=== PATIENT | female | born 1990 | race Caucasian/White ===

== ENCOUNTER 2018-07-16 13:00 | Emergency (ER) | payer OTHER, MEDICAID, SELFPAY ==
[2018-07-16 13:00] VITALS: BP 141/93; PULSE 119; RESP 20; TEMP 37.5; O2SAT 100
--- NOTE | 2018-07-16 13:15 | ED_ITS ---
HPI - Abdominal Pain <Kika Andrea PA-C - Last Filed: 07/16/18 21:38> General Chief Complaint: Abdominal Pain Stated Complaint: Abdominal Pain Time Seen by Provider: 07/16/18 13:05 Source: patient Mode of arrival: ambulatory Limitations: no limitations History of Present Illness HPI narrative: This 28-year-old female comes in due to left pelvic area pain. She states that her LMP was 7/20, however she just had confirmed last week, Dr. Moran thinks she is somewhere between 6-10 weeks. She states that she had nausea this morning for the 1st time, and gradually worsening pelvic/ abdominal pressure, then pain on the left over the hour prior to arrival. She states that this feels similar to her prior hemorrhagic ovarian cysts in terms of pain quality. She has not taken any pain medication. She states at times pain feels like it radiates into the thigh. She denies fever. She has not had any vomiting today. She denies any vaginal spotting or discharge. Denies any hematuria or urinary symptoms. She had a normal bowel movement yesterday and was feeling normal. She states that she feels somewhat like she has an ?air bubble? in her chest, and felt somewhat winded with walking a little while ago, otherwise has not had any chest discomfort or dyspnea. She denies any pain or swelling in her extremities or other new complaints on systems review. Related Data Home Medications Medication Instructions Recorded Confirmed lactobacillus combination no.8 3 3,000 mmu cells PO DAILY 06/07/18 07/16/18 billion cell capsule Allergies Allergy/AdvReac Type Severity Reaction Status Date / Time No Known Drug Allergies Allergy Verified 07/16/18 13:26 Review of Systems <Kika Andrea PA-C - Last Filed: 07/16/18 21:38> Review of Systems All systems reviewed & are unremarkable except as noted in HPI and below PFSH <Kika Andrea PA-C - Last Filed: 07/16/18 21:38> Comment: Exam <Kika Andrea PA-C - Last Filed: 07/16/18 21:38> Initial Vital Signs Initial Vital Signs: Vital Signs Temperature 99.5 F 07/16/18 13:00 Pulse Rate 119 H 07/16/18 13:00 Respiratory Rate 20 07/16/18 13:00 Blood Pressure 141/93 H 07/16/18 13:00 Pulse Oximetry 100 07/16/18 13:00 GENERAL APPEARANCE: Patient resting comfortably, in no distress. HEENT: PERRL, EOMI, no scleral icterus NECK: Supple LUNGS: Clear to auscultation bilaterally. HEART: Rate and rhythm regular, normal S1 and S2, no S3 or S4. Heart rate in 70s on my auscultation, sinus arrythmia ABDOMEN: Soft, nondistended, bowel sounds present x 4 quadrants, no masses palpable, no hepatosplenomegaly. Tender over the left inferior lower quadrant/ pelvic border without guarding or rebound, no tenderness elsewhere including suprapubic tenderness or CVAT EXTREMITIES: No edema, no cyanosis, no calf tenderness DERMATOLOGIC: No jaundice or exanthem NEUROLOGIC: Alert and oriented with normal speech and coordination <Kike Velazquez DO - Last Filed: 07/17/18 07:01> Initial Vital Signs Initial Vital Signs: Vital Signs Temperature 99.5 F 07/16/18 13:00 Pulse Rate 119 H 07/16/18 13:00 Respiratory Rate 20 07/16/18 13:00 Blood Pressure 141/93 H 07/16/18 13:00 Pulse Oximetry 100 07/16/18 13:00 Course <Kika Andrea PA-C - Last Filed: 07/16/18 21:38> Additional Information: Patient reported pain significantly improved during her stay, just with ice pack. She was tolerating fluids and crackers prior to departure and reported feeling better. Agreed to return if any acutely worsening symptoms again. She is not having any dyspnea or chest discomfort prior to discharge. Orders Ordered: Discontinued Medications Acetaminophen (Tylenol) 650 mg PO NOW ONE Stop: 07/16/18 14:35 Last Admin: 07/16/18 14:39 Dose: 650 mg Vital Signs - 8 hr 07/16/18 14:02 07/16/18 14:30 07/16/18 15:27 Temperature 97.5 F L Pulse Rate 83 91 H 87 Respiratory Rate 18 14 16 Blood Pressure [Left Arm] 129/69 H 140/70 H 122/67 H Pulse Oximetry 99 100 100 <Kike Velazquez DO - Last Filed: 07/17/18 07:01> Orders Ordered: Discontinued Medications Acetaminophen (Tylenol) 650 mg PO NOW ONE Stop: 07/16/18 14:35 Last Admin: 07/16/18 14:39 Dose: 650 mg Vital Signs - 8 hr 07/16/18 14:02 07/16/18 14:30 07/16/18 15:27 Temperature 97.5 F L Pulse Rate 83 91 H 87 Respiratory Rate 18 14 16 Blood Pressure [Left Arm] 129/69 H 140/70 H 122/67 H Pulse Oximetry 99 100 100 MDM - Abdominal Pain <Kika Andrea PA-C - Last Filed: 07/16/18 21:38> Lab Data Attestation: I reviewed the patient's lab results. Result diagrams: 07/16/18 13:15 07/16/18 13:15 Lab Results 07/16/18 07/16/18 Range/Units 13:15 13:15 WBC 12.2 H (4.5-11.0) X10^3/uL RBC 4.64 (4.0-5.2) X10^6/uL Hgb 13.8 (12.0-16.0) g/dL Hct 39.9 (36-46) % MCV 86.0 (80-100) fL MCH 29.8 (26-34) PG MCHC 34.7 (30-36) % RDW 13.3 (11.6-14.8) % Plt Count 302 (150-400) X10^3/uL Neut % (Auto) 71.2 (50-75) % Lymph % (Auto) 22.1 L (25-40) % [place] % (Auto) 4.9 (3-14) % Eos % (Auto) 0.8 L (2-4) % Baso % (Auto) 1.0 (0-2) % Neut # (Auto) 8700 H (3479-5236) /uL Sodium 142 (137-145) mmol/L Potassium 3.4 (3.4-5.1) mmol/L Chloride 105 (98-107) mmol/L Carbon Dioxide 26 (22-32) mmol/L BUN 14 (7-17) mg/dL Creatinine 0.60 (0.52-1.04) mg/dL Estimated GFR > 60.0 (>60) mL/min BUN/Creatinine Ratio 23.3 H (6-22) Glucose 104 H (70-100) mg/dL Calcium 9.5 (8.4-10.2) mg/dL Total Bilirubin 0.6 (0.2-1.3) mg/dL AST 23 (14-36) IU/L ALT 25 (9-52) IU/L Alkaline Phosphatase 51 (38-126) U/L Total Protein 7.8 (6.3-8.2) g/dL Albumin 4.7 (3.5-5.0) g/dL Globulin 3.1 (1.7-4.1) g/dL Albumin/Globulin Ratio 1.5 (1.0-2.8) HCG, Quant 23783 mIU/mL Imaging Data pelvis: Radiologist's impression: View Report History [address] [address] Ultrasound Report Signed Patient: Ambreen Montague MR#: [id number] : 1990 Acct:[id number] Age/Sex: 28 / F Date of Service: 07/16/18 Loc: ED Accession Number: [id number] Procedure: US OB <= 14 weeks fetus Ordering Provider: Kika Andrea P.A-C PROCEDURE: US OB <= 14 WEEKS FETUS INDICATIONS: L. pelvic pain, pG OUTSIDE/PRIOR DATING DATA: Last menstrual period (LMP): 06/10/18. LMP-based estimated date of delivery (ERENDIRA): 03/17/19. First dating scan (date and location): This study. Estimated date of delivery (ERENDIRA) from first dating scan: 03/13/19+ or -7 days, based on mean sac diameter and the estimated gestational age centered on 5 weeks 5 days. TECHNIQUE: Real-time scanning was performed of the fetus and maternal pelvic organs, with image documentation. Endovaginal scanning was also performed to better visualize the fetus and maternal ovaries. COMPARISON: None. FINDINGS: Embryo: An embryo is not seen Me but what appears to be a gestational sac by mean sac diameter of 9 mm is present with a gestational age estimate from [place] of 5 weeks 5 days, plus or -7 days asurement variability in dating: +/- 4 weeks by LMP, +/- 7 days by mean sac diameter ( use before 6 weeks gestation if crown-rump length not able to be measured), +/- 5 days by crown-rump length (up to 8 weeks 6 days gestation), +/- 7 days by crown-rump length (up to 13 weeks 6 days gestation). Maternal organs: Ovaries normal considering presumed gestational status. Limited images through the kidneys demonstrate no hydronephrosis. IMPRESSION: Presumed intrauterine gestation but embryo has not yet been visualized. Assuming mean sac diameter of 9 mm represents a crit evidence of intrauterine gestation the current gestational age would E5 weeks 5 days and the delivery date would be projected to be centered on 03/13/19, plus or -7 days. No sonographic evidence of ectopic is found. Correlation with quantitative beta hCG would assist in establishing likelihood of viable gestation. Followup anatomic survey at approximately 21 weeks gestation is recommended. Dictated by: Vladimir Pizarro M.D. on 07/16/2018 at 15:15 Approved by: Vladimir Pizarro M.D. on 07/16/2018 at 15:18 <Kike Velazquez DO - Last Filed: 07/17/18 07:01> Lab Data Lab Results 07/16/18 07/16/18 Range/Units 13:15 13:15 WBC 12.2 H (4.5-11.0) X10^3/uL RBC 4.64 (4.0-5.2) X10^6/uL Hgb 13.8 (12.0-16.0) g/dL Hct 39.9 (36-46) % MCV 86.0 (80-100) fL MCH 29.8 (26-34) PG MCHC 34.7 (30-36) % RDW 13.3 (11.6-14.8) % Plt Count 302 (150-400) X10^3/uL Neut % (Auto) 71.2 (50-75) % Lymph % (Auto) 22.1 L (25-40) % [place] % (Auto) 4.9 (3-14) % Eos % (Auto) 0.8 L (2-4) % Baso % (Auto) 1.0 (0-2) % Neut # (Auto) 8700 H (7319-8861) /uL Sodium 142 (137-145) mmol/L Potassium 3.4 (3.4-5.1) mmol/L Chloride 105 (98-107) mmol/L Carbon Dioxide 26 (22-32) mmol/L BUN 14 (7-17) mg/dL Creatinine 0.60 (0.52-1.04) mg/dL Estimated GFR > 60.0 (>60) mL/min BUN/Creatinine Ratio 23.3 H (6-22) Glucose 104 H (70-100) mg/dL Calcium 9.5 (8.4-10.2) mg/dL Total Bilirubin 0.6 (0.2-1.3) mg/dL AST 23 (14-36) IU/L ALT 25 (9-52) IU/L Alkaline Phosphatase 51 (38-126) U/L Total Protein 7.8 (6.3-8.2) g/dL Albumin 4.7 (3.5-5.0) g/dL Globulin 3.1 (1.7-4.1) g/dL Albumin/Globulin Ratio 1.5 (1.0-2.8) HCG, Quant 81692 mIU/mL Discharge Plan Departure Patient Disposition: Home Clinical Impression: Pelvic pain affecting in first trimester, antepartum Discharge Date/Time: 07/16/18 16:17 Interventions: ED Discharge Assessment Last Done: 07/16/18 15:48 Instructions: DI for Abdominal Pain -- Early Activity Restrictions/Additional Instructions: Since you are feeling better, you can monitor at home. Take Tylenol and use an ice or heat pack as needed for pain. Your ultrasound today showed a gestational sac in your uterus. There is no embryo visible yet, however at a little more than 5 weeks along, this would be typical, and the ultrasound dating correlates with your last period. Your blood test is normal for this stage of . The electrical service technician noted that you did have a cyst on your right ovary that is rupturing. Please continue to drink fluids and eat small amounts of bland food every hour or 2 to help with nausea. You should return if you have any acutely worsening symptoms, such as worsening pain again, or new symptoms such as fever or profuse vomiting Prescriptions: No Action lactobacillus combination no.8 [Adult Probiotic] 3 billion cell capsule 3,000 mmu cells PO DAILY RF: 0 Referrals: Roberto Moran MD [Primary Care Provider] - <Kike Velazquez DO - Last Filed: 07/17/18 07:01> Cosign ED Attending Marimarature Attestation: I was available for consultation during this patient's emergency department encounter
[2018-07-16 13:29] LABS: Add Manual Diff / Slide Review NO; Eosinophils Percent Auto 0.8 % (2-4); Hematocrit 39.9 % (36-46); Hemoglobin 13.8 g/dL (12.0-16.0); Lymphocytes Percent Auto 22.1 % (25-40); Mean Corpuscular HGB Conc 34.7 % (30-36); Mean Corpuscular Hemoglobin 29.8 PG (26-34); Monocytes Percent Auto 4.9 % (3-14); Neutrophils Absolute Auto 8700 /uL (3000-5900); Neutrophils Percent Auto 71.2 % (50-75); Platelet Count 302 X10^3/uL (150-400); Red Blood Cell Count 4.64 X10^6/uL (4.0-5.2); Red Cell Distribution Width 13.3 % (11.6-14.8); White Blood Cell Count 12.2 X10^3/uL (4.5-11.0)
--- NOTE | 2018-07-16 13:29 | DI.US.S_ITS ---
PROCEDURE: US OB <= 14 WEEKS FETUS INDICATIONS: L. pelvic pain, pG OUTSIDE/PRIOR DATING DATA: Last menstrual period (LMP): 06/10/18. LMP-based estimated date of delivery (ERENDIRA): 03/17/19. First dating scan (date and location): This study. Estimated date of delivery (ERENDIRA) from first dating scan: 03/13/19+ or -7 days, based on mean sac diameter and the estimated gestational age centered on 5 weeks 5 days. TECHNIQUE: Real-time scanning was performed of the fetus and maternal pelvic organs, with image documentation. Endovaginal scanning was also performed to better visualize the fetus and maternal ovaries. COMPARISON: None. FINDINGS: Embryo: An embryo is not seen Me but what appears to be a gestational sac by mean sac diameter of 9 mm is present with a gestational age estimate from [place] of 5 weeks 5 days, plus or -7 days asurement variability in dating: +/- 4 weeks by LMP, +/- 7 days by mean sac diameter (use before 6 weeks gestation if crown-rump length not able to be measured), +/- 5 days by crown-rump length (up to 8 weeks 6 days gestation), +/- 7 days by crown-rump length (up to 13 weeks 6 days gestation). Maternal organs: Ovaries normal considering presumed gestational status. Limited images through the kidneys demonstrate no hydronephrosis. IMPRESSION: Presumed intrauterine gestation but embryo has not yet been visualized. Assuming mean sac diameter of 9 mm represents a crit evidence of intrauterine gestation the current gestational age would E5 weeks 5 days and the delivery date would be projected to be centered on 03/13/19, plus or -7 days. No sonographic evidence of ectopic is found. Correlation with quantitative beta hCG would assist in establishing likelihood of viable gestation. Followup anatomic survey at approximately 21 weeks gestation is recommended. Dictated by: Vladimir Pizarro M.D. on 07/16/2018 at 15:15 Approved by: Vladimir Pizarro M.D. on 07/16/2018 at 15:18
[2018-07-16 13:30] VITALS: BP 128/77; PULSE 99; RESP 18; O2SAT 99
[2018-07-16 13:42] LABS: Alanine Aminotransferase 25 IU/L (9-52); Albumin 4.7 g/dL (3.5-5.0); Albumin Globulin Ratio 1.5 (1.0-2.8); Alkaline Phosphatase 51 U/L (38-126); Aspartate Aminotransferase 23 IU/L (14-36); BUN Creatinine Ratio 23.3 (6-22); Bilirubin Total 0.6 mg/dL (0.2-1.3); Blood Urea Nitrogen 14 mg/dL (7-17); Calcium 9.5 mg/dL (8.4-10.2); Carbon Dioxide 26 mmol/L (22-32); Chloride 105 mmol/L (98-107); Estimated Glomerular Filt Rate > 60.0 mL/min (>60); Globulin 3.1 g/dL (1.7-4.1); Glucose 104 mg/dL (70-100); HEMOLYSIS < 15 (0-50); Potassium 3.4 mmol/L (3.4-5.1); Sodium 142 mmol/L (137-145); Total Protein 7.8 g/dL (6.3-8.2)
[2018-07-16 14:00] LABS: HCG Quantitative /Beta subunit 10312 mIU/mL
[2018-07-16 14:02] VITALS: BP 129/69; PULSE 83; RESP 18; O2SAT 99
[2018-07-16 14:30] VITALS: BP 140/70; PULSE 91; RESP 14; O2SAT 100
[2018-07-16] MEDS: ACETAMINOPHEN 325 MG TABLET 650 MG PO (14:39)
[2018-07-16 15:27] VITALS: BP 122/67; PULSE 87; RESP 16; TEMP 36.4; O2SAT 100
== END 2018-07-16 16:17 | disposition home or self-care (01) ==
PROVIDERS: Emergency Provider Internal Medicine; Family Provider Family Medicine; PCP Family Medicine
DX: O26.891 Other specified pregnancy related conditions, first trimester (principal); R10.9 Unspecified abdominal pain; Z3A.14 14 weeks gestation of pregnancy
CPT/HCPCS: 36591; 76801; 80053; 84702; 85025; 99283; 99284

== ENCOUNTER → 2018-07-26 12:37 | Outpatient (CLI) | payer OTHER, MEDICAID, SELFPAY ==
--- NOTE | 2018-07-26 | DI.US.S_ITS ---
PROCEDURE: US OB <= 14 WEEKS FETUS INDICATIONS: INITIAL SIZING AND DATING OUTSIDE/PRIOR DATING DATA: Last menstrual period (LMP): 06/10/2018. LMP-based estimated date of delivery (ERENDIRA): 03/17/2019. First dating scan (date and location): 07/26/2018 at . Estimated date of delivery (ERENDIRA) from first dating scan: 03/14/2019 (based on CRL). TECHNIQUE: Real-time scanning was performed of the fetus and maternal pelvic organs, with image documentation. COMPARISON: [facility], , OB <= 14 WEEKS FETUS, 07/16/2018, 14:14. FINDINGS: Embryo: There is an intrauterine gestational sac and a pole with cardiac activity. heart rate is at 122 bpm. Estimated gestational age is 7 weeks 0 day. There is a normal-appearing yolk sac. Measurement variability in dating: +/- 4 weeks by LMP, +/- 7 days by mean sac diameter (use before 6 weeks gestation if crown-rump length not able to be measured), +/- 5 days by crown-rump length (up to 8 weeks 6 days gestation), +/- 7 days by crown-rump length (up to 13 weeks 6 days gestation). Maternal organs: Ovaries are grossly normal. Note is made of a 2.2 cm corpus luteal cyst in the right ovary. Limited images through the kidneys demonstrate no hydronephrosis. IMPRESSION: 1. A single living intrauterine gestation with the estimated gestational age of 7 weeks 0 day base on the current ultrasound. Ultrasound EDC 03/14/2019. 2. A 2.2 cm corpus luteal cyst in the right ovary. Dictated by: Ousmane Moe M.D. on 07/26/2018 at 16:04 Approved by: Ousmane Moe M.D. on 07/26/2018 at 16:13
== END ==
PROVIDERS: Family Provider Family Medicine; PCP Family Medicine; Visit Provider Family Medicine
DX: O34.81 Maternal care for other abnormalities of pelvic organs, first trimester (principal); N83.11 Corpus luteum cyst of right ovary; Z3A.01 Less than 8 weeks gestation of pregnancy
CPT/HCPCS: 76801; 76817

== ENCOUNTER → 2018-09-25 08:35 | Outpatient (CLI) | payer OTHER, MEDICAID, SELFPAY | PROVIDERS: Family Provider Family Medicine; PCP Family Medicine | DX: Z23 Encounter for immunization (principal) | CPT/HCPCS: 90471; 90686 ==

== ENCOUNTER → 2018-09-29 12:30 | Outpatient (CLI) | payer OTHER, MEDICAID, SELFPAY ==
--- NOTE | 2018-09-29 | DI.US.S_ITS ---
PROCEDURE: US OB LIMITED INDICATIONS: VAGINAL BLEEDING/SECOND TRIMESTER OUTSIDE/PRIOR DATING DATA: Last menstrual period (LMP): 06/10/2018. LMP-based estimated date of delivery (ERENDIRA): 03/17/2019. First dating scan (date and location): 07/26/2018 at . Estimated date of delivery (ERENDIRA) from first dating scan: 03/14/2019. TECHNIQUE: Real-time scanning was performed of the fetus, with image documentation and biometric measurements. Endovaginal scanning: No COMPARISON: [facility], OB <= 14 WEEKS FETUS, 07/26/2018, 13:07. [facility], [facility], 05/17/2014, 8:35. FINDINGS: General: A single living intrauterine gestation is present. Presentation: Transverse. Placenta: Placental position is posterior, with marginal previa with the inferior aspect of the placenta extending to the internal cervical os. Amniotic fluid index: 9.1 cm, normal range is 5-24 cm. heart rate: 140 beats per minute. Maternal cervical canal: 3.6 cm long. Normal lower limit is 2.5 cm. Other: Not applicable. IMPRESSION: 1. Single living IUP redemonstrated and marginal placenta previa present. Followup recommended. Dictated by: Jose KENT Interpreted: Vladimir Pizarro MD on 09/29/2018 at 14:32 Approved by: Vladimir Pizarro M.D. on 09/30/2018 at 10:53
== END ==
PROVIDERS: Family Provider Family Medicine; PCP Family Medicine; Visit Provider Family Medicine
DX: O46.92 Antepartum hemorrhage, unspecified, second trimester (principal); Z3A.15 15 weeks gestation of pregnancy
CPT/HCPCS: 76815

== ENCOUNTER → 2018-11-01 08:44 | Outpatient (CLI) | payer OTHER, MEDICAID, SELFPAY ==
--- NOTE | 2018-11-01 | DI.US.S_ITS ---
PROCEDURE: OB >= 14 WEEKS FETUS INDICATIONS: ANATOMIC SURVEY OUTSIDE/PRIOR DATING DATA: Last menstrual period (LMP): 06/10/18. LMP-based estimated date of delivery (ERENDIRA): 03/17/19. First dating scan (date and location): 07/16/18. Estimated date of delivery (ERENDIRA) from first dating scan: 03/14/19. TECHNIQUE: Real-time scanning was performed of the fetus, with image documentation and biometric measurements. Endovaginal scanning: No COMPARISON: [facility], OB LIMITED, 09/29/2018, 12:54. FINDINGS: General: A single living intrauterine gestation is present. Presentation: The vertex Placenta: Placental position is posterior, with complete placenta previa at this time. Amniotic fluid index: 1.2 cm, normal range is 5-24 cm. heart rate: 160 beats per minute. Maternal cervical canal: 4.0 cm long. biometrics: Biparietal diameter: 20 weeks 6 days Head circumference: 20 weeks 5 days Abdominal circumference: 20 weeks 4 days Femur length: 20 weeks 4 days Estimated gestational age from initial scan: 21 weeks Composite gestational age from present scan: 20 weeks 6 days Estimated weight and percentile: 361 g; 23rd percentile Measurement variability for biometric dating: +/- 7 days from 14 weeks to 15 weeks 6 days gestation, +/- 10 days from 16 weeks to 21 weeks 6 days gestation, +/- 2 weeks from 22 weeks to 27 weeks 6 days gestation, +/- 3 weeks for 28 weeks gestation or later. weight reference: 4500 g or EFW >90/95% is considered macrosomia or large for gestational age. EFW <10% is small for gestational age. EFW 5% or less is considered intra-uterine growth restriction. Anatomic survey: Neuro: Ventricles are non-dilated at less than 10 mm. Cisterna magna is normal at 3-11 mm. Cerebellum is normal in size and morphology. Nuchal skin fold: Normal at less than 6 mm between 14-21 weeks gestational age. Face: Nose and lips, facial profile are normal. Spine: No evidence for spina bifida. Heart: 4-chambered heart is present, with normal ventricular outflow tracts. Diaphragm: Diaphragm is intact. Stomach: Left-sided stomach is present. Kidneys: No hydronephrosis. Normal is less than 5 mm in 2nd trimester, less than 7 mm in 3rd trimester. Cord: 3-vessel cord has orthotopic insertion. Bladder: Normal in size. Extremities: All 4 extremities identified. IMPRESSION: 1. Single living IUP we demonstrated and interval growth is normal. 2. Normal anatomic survey. 3. Complete placenta previa. Followup recommended. Dictated by: Jose LOPEZ Interpreted: Jessica Perdue MD on 11/01/2018 at 11:17 Approved by: Jessica Perdue M.D. on 11/01/2018 at 14:46
== END ==
PROVIDERS: PCP Family Medicine; Visit Provider Family Medicine
DX: Z36.89 Encounter for other specified antenatal screening (principal); Z3A.20 20 weeks gestation of pregnancy
CPT/HCPCS: 76811

== ENCOUNTER → 2018-12-20 09:38 | Outpatient (CLI) | payer OTHER, MEDICAID, SELFPAY ==
--- NOTE | 2018-12-20 | DI.US.S_ITS ---
PROCEDURE: US OB FOLLOW UP INDICATIONS: PLACENTA PREVIA OUTSIDE/PRIOR DATING DATA: Last menstrual period (LMP): 06/10/18. LMP-based estimated date of delivery (ERENDIRA): 03/17/19. First dating scan (date and location): 07/16/18. Estimated date of delivery (ERENDIRA) from first dating scan: 03/14/19. TECHNIQUE: Real-time scanning was performed of the fetus, with image documentation and biometric measurements. Endovaginal scanning: No COMPARISON: [facility], OB >= 14 WEEKS FETUS, 11/01/2018, 9:10. FINDINGS: General: A single living intrauterine gestation is present. Presentation: Vertex. Placenta: Placental position is posterior, with marginal placenta previa with the inferior aspect of the placenta 0.7 cm above the internal cervical os Amniotic fluid index: 13.1 cm, normal range is 5-24 cm. heart rate: 144 beats per minute. Maternal cervical canal: 5.2 cm long. Normal lower limit is 2.5 cm. Other: Not applicable. IMPRESSION: 1. Single living IUP redemonstrated and marginal placenta previa is now noted. Continued sonographic surveillance recommended. Dictated by: Jose LOPEZ Interpreted: Vladimir Pizarro MD on 12/20/2018 at 13:06 Approved by: Vladimir Pizarro M.D. on 12/21/2018 at 8:11
== END ==
PROVIDERS: PCP Family Medicine; Visit Provider Family Medicine
DX: O44.22 Partial placenta previa NOS or without hemorrhage, second trimester (principal); Z3A.27 27 weeks gestation of pregnancy
CPT/HCPCS: 76816; 76830

== ENCOUNTER → 2019-01-16 10:10 | Outpatient (CLI) | payer OTHER, MEDICAID, SELFPAY ==
--- NOTE | 2019-01-16 | DI.US.S_ITS ---
PROCEDURE: US OB FOLLOW UP INDICATIONS: PLACENTA PREVIA OUTSIDE/PRIOR DATING DATA: Last menstrual period (LMP): 06/10/18. LMP-based estimated date of delivery (ERENDIRA): 03/17/19. First dating scan (date and location): 07/16/18. Estimated date of delivery (ERENDIRA) from first dating scan: 03/14/19. TECHNIQUE: Real-time scanning was performed of the fetus, with image documentation. Endovaginal scanning: Performed for more specific evaluation of marginal previa COMPARISON: [facility], OB FOLLOW UP, 12/20/2018, 10:09. FINDINGS: A single live intrauterine gestation is present. Presentation: Vertex. Placenta: Placental position is posterior, without previa. The inferior placental edge is seen 2.4 cm from the internal cervical os. Amniotic fluid index: 8.6 cm, normal range is 5-24 cm. heart rate: 137 beats per minute. Maternal cervical canal: 5.8 cm long. Normal lower limit is 2.5 cm. Estimated gestational age from initial scan: 31 weeks 6 days. IMPRESSION: There is no placenta previa seen at this time. The inferior placental edge is seen 2.4 cm from the internal cervical os. The ANURADHA is 8.6, which is approximately the 5th percentile for gestational age. Please monitor for oligohydramnios. Dictated by: Darell Elder M.D. on 01/16/2019 at 14:23 Approved by: Darell Elder M.D. on 01/16/2019 at 14:30
== END ==
PROVIDERS: PCP Family Medicine; Visit Provider Family Medicine
DX: O44.03 Complete placenta previa NOS or without hemorrhage, third trimester (principal); Z3A.31 31 weeks gestation of pregnancy
CPT/HCPCS: 76815; 76817

== ENCOUNTER 2019-01-29 14:28 | Observation (INO) | payer OTHER, MEDICAID, SELFPAY ==
[2019-01-29] MEDS: NIFEdipine 10 MG CAPSULE PO ×4 (15:13→16:21)
[2019-01-29] MEDS: LACTATED RINGERS 1,000 ML 1000 ML IV (15:15)
[2019-01-29 16:05] LABS: Bacteria Urine None Seen; RBC Urine None Seen (0-5/HPF)
[2019-01-29 16:07] LABS: Appearance Urine UA CLEAR; Bilirubin Urine UA NEGATIVE (NEGATIVE); Color Urine UA YELLOW; Glucose Urine UA NEGATIVE (Negative); Ketones Urine UA NEGATIVE (NEGATIVE); Leukocyte Esterase Urine UA NEGATIVE (NEGATIVE); Nitrite Urine UA NEGATIVE (Negative); Occult Blood Urine UA NEGATIVE (Negative); Protein Urine UA NEGATIVE (Negative); Specific Gravity Urine UA <=1.005 (1.000-1.035); Urobilinogen Urine UA 0.2 E.U./dL (0.2); pH Urine UA 6.5 (4.5-8.0)
[2019-01-29 16:17] LABS: Culture Indicated Urine Cult Not Indicated; Squamous Epithelial Cell Urine 1-5 /HPF; WBC Urine 0-1/HPF (0-5/HPF)
--- NOTE | 2019-01-29 16:31 | DI.US.S_ITS ---
PROCEDURE: US OB LIMITED INDICATIONS: CONTRACTIONS OUTSIDE/PRIOR DATING DATA: Last menstrual period (LMP): 06/10/18. LMP-based estimated date of delivery (ERENDIRA): 03/17/19 First dating scan (date and location): 07/16/18, [facility] Estimated date of delivery (ERENDIRA) from first dating scan: 03/14/19 TECHNIQUE: Real-time scanning was performed of the fetus, with image documentation and biometric measurements. Endovaginal scanning: Not performed COMPARISON: [facility], , OB LIMITED, 09/29/2018, 12:54. FINDINGS: General: A single living intrauterine gestation is present. Presentation: Vertex Placenta: Posterior without previa Amniotic fluid index: 5.1 cm, normal range is 5-24 cm. heart rate: 175 beats per minute. Maternal cervical canal: Not seen a late stage of os: % of canal length, shape (U or V), width or any U-shaped funneling.>> biometrics: Biparietal diameter: 8.37 cm, 33 weeks 5 days Head circumference: 30.14 cm, 33 weeks 3 days Abdominal circumference: 30.06 cm, 34 weeks zero days Femur length: 6.16 cm, 32 weeks zero days Estimated gestational age from initial scan: not applicable. Composite gestational age from present scan: 33 weeks 2 days Estimated weight and percentile: 2176 g plus or -322 g, 32nd percentile Measurement variability for biometric dating: +/- 7 days from 14 weeks to 15 weeks 6 days gestation, +/- 10 days from 16 weeks to 21 weeks 6 days gestation, +/- 2 weeks from 22 weeks to 27 weeks 6 days gestation, +/- 3 weeks for 28 weeks gestation or later. weight reference: 4500 g or EFW >90/95% is considered macrosomia or large for gestational age. EFW <10% is small for gestational age. EFW 5% or less is considered intra-uterine growth restriction. There is normal interval growth. Other: Not applicable. IMPRESSION: 1. Living third trimester intrauterine . Normal interval growth, within 3 days of the previous ultrasound. 2. Borderline oligohydramnios Dictated by: Jesus Alberto Hurt M.D. on 01/29/2019 at 17:25 Approved by: Jesus Alberto Hurt M.D. on 01/29/2019 at 17:31
[2019-01-29] MEDS: TERBUTALINE 1 MG/ML VIAL 0.25 MG SUBCUT (16:46)
[2019-01-29 17:54] LABS: Add Manual Diff / Slide Review NO; Basophils Absolute Auto 100 /uL (0-100); Basophils Percent Auto 0.6 % (0-2); Eosinophils Absolute Auto 100 /uL (0-450); Hematocrit 38.9 % (36-46); Lymphocytes Absolute Auto 2600 /uL (1100-4500); Lymphocytes Percent Auto 20.9 % (25-40); Mean Corpuscular HGB Conc 33.4 % (30-36); Mean Corpuscular Hemoglobin 29.5 PG (26-34); Mean Corpuscular Volume 88.2 fL (80-100); Monocytes Absolute Auto 700 /uL (0-900); Monocytes Percent Auto 5.9 % (3-14); Neutrophils Absolute Auto 8800 /uL (1500-7000); Neutrophils Percent Auto 71.6 % (50-75); Platelet Count 182 X10^3/uL (150-400); Red Blood Cell Count 4.41 X10^6/uL (4.0-5.2); Red Cell Distribution Width 13.6 % (11.6-14.8); White Blood Cell Count 12.3 X10^3/uL (4.5-11.0)
[2019-01-29] MEDS: MAGNESIUM SULFATE 4 GM/100 ML PIGGYBACK IV (17:58)
--- NOTE | 2019-01-29 18:03 | PM.OBHP.1 ---
OB HPI History of Present Condition Chief complaint: Observation Narrative: Ambreen Montague is a 28 year old female at 33 and 5 7 weeks estimated gestational age presents to Labor and delivery with a 3 hr history of progressively worsening contractions. She has not had any change in discharge. She has not had any bleeding. She has not had sex recently. 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 She has not had headaches or swelling or reflux or visual changes and baby has been active. She has had 4 doses of nifedipine 10 mg as well as terbutaline of lean 0.25 mg subcu and had improvement in contractions and they have resumed. They are quite painful. Her past OB history is remarkable for premature onset of uterine contractions at 35 weeks and normal spontaneous vaginal delivery at 37 and half weeks of a viable female infant weighing 8 lb 6 oz at [facility]. There were no complications. She has had early care and EDC based on LMP in 7 week ultrasound. This has been complicated by placenta previa which has resolved on ultrasound 2 weeks ago. Fluid was noted to be low normal on this ultrasound with an ANURADHA of 8 and a repeat ultrasound was scheduled for tomorrow. Serology syphilis, HIV, hepatitis-B, hepatitis-C are all negative A positive, rubella immune Immune to chickenpox. HSV 1 positive but HSV 2- GBS rapid strep is pending Past medical history: 1. Irritable bowel syndrome 2. 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 [employer] FHx: no congenital birthdefects Evaluation Evaluation Laboratory results: Laboratory Tests 01/29/19 01/29/19 16:00 17:40 WBC 12.3 H RBC 4.41 Hgb 13.0 Hct 38.9 MCV 88.2 MCH 29.5 MCHC 33.4 RDW 13.6 Plt Count 182 Neut % (Auto) 71.6 Lymph % (Auto) 20.9 L [place] % (Auto) 5.9 Eos % (Auto) 1.0 L Baso % (Auto) 0.6 Neut # (Auto) 8800 H Lymph # (Auto) 2600 [place] # (Auto) 700 Eos # (Auto) 100 Baso # (Auto) 100 Urine Color Yellow Urine Appearance Clear Urine pH 6.5 Ur Specific [place] <=1.005 Urine Protein Negative Urine Glucose (UA) Negative Urine Ketones Negative Urine Occult Blood Negative Urine Nitrate Negative Urine Bilirubin Negative Urine Urobilinogen 0.2 Ur Leukocyte Esterase Negative Urine RBC None seen Urine WBC 0-1/hpf Ur Squamous Epith Cells 1-5 /hpf Urine Bacteria None seen Ur Culture Indicated? Cult not indicated PFSH Surgical History History of tonsillectomy (Resolved) S/P tonsillectomy (Resolved) Family History Grandfather No problems noted. Grandmother Lung cancer Grandmother No problems noted. Brother No problems noted. Social History Smoking Status: Former smoker Family History Grandfather No problems noted. Grandmother Lung cancer Grandmother No problems noted. Brother No problems noted. Social History Smoking Status: Former smoker Meds Home Medications Medication Instructions Recorded Confirmed Type lactobacillus combination no.8 3 3,000 mmu cells PO DAILY 06/07/18 07/16/18 History billion cell capsule Allergies Allergy/AdvReac Type Severity Reaction Status Date / Time No Known Drug Allergies Allergy Verified 07/16/18 13:26 Review of Systems Review of Systems Negative for any change in fluid. Negative for any headaches. Negative for any swelling. Negative for any visual changes. Baby has been active No abdominal pain other than contractions No urinary symptoms No fevers, chills, rashes All systems reviewed & are unremarkable except as noted in HPI and below Exam Narrative Exam Narrative: Patient is alert and oriented x3 and vital signs are stable HEENT: Unremarkable Neck is supple without adenopathy Chest: Clear to auscultation without wheezes rhonchi or crackles Cor: Regular rate and rhythm without any murmur Abdomen: Positive bowel sounds, soft, gravid, contractions palpate firm, vertex presentation estimated weight 4.5 lb Uterine contractions are for firm Extremities: No edema, DTRs are intact Skin no rashes Cervical check shows that head is low -1 with cervix posterior to mid position very soft 50-60% effaced and finger tip dilated heart tones baseline in the 140s to 150s with accelerations with moderate variability and no decelerations Uterine contractions firm to palpation every 2-4 minutes Objective Labs Result Diagrams: 01/29/19 17:40 Labs: Laboratory Results - last 24 hr 01/29/19 01/29/19 16:00 17:40 WBC 12.3 H RBC 4.41 Hgb 13.0 Hct 38.9 MCV 88.2 MCH 29.5 MCHC 33.4 RDW 13.6 Plt Count 182 Neut % (Auto) 71.6 Lymph % (Auto) 20.9 L [place] % (Auto) 5.9 Eos % (Auto) 1.0 L Baso % (Auto) 0.6 Neut # (Auto) 8800 H Lymph # (Auto) 2600 [place] # (Auto) 700 Eos # (Auto) 100 Baso # (Auto) 100 Urine Color Yellow Urine Appearance Clear Urine pH 6.5 Ur Specific [place] <=1.005 Urine Protein Negative Urine Glucose (UA) Negative Urine Ketones Negative Urine Occult Blood Negative Urine Nitrate Negative Urine Bilirubin Negative Urine Urobilinogen 0.2 Ur Leukocyte Esterase Negative Urine RBC None seen Urine WBC 0-1/hpf Ur Squamous Epith Cells 1-5 /hpf Urine Bacteria None seen Ur Culture Indicated? Cult not indicated
--- NOTE | 2019-01-29 18:08 | P.HPOB_ITS ---
OB HPI History of Present Condition Chief complaint: Observation Narrative: Ambreen Montague is a 28 year old female at 33 and 5 7 weeks estimated gestational age presents to Labor and delivery with a 3 hr history of progressively worsening contractions. She has not had any change in discharge. She has not had any bleeding. She has not had sex recently. 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 She has not had headaches or swelling or reflux or visual changes and baby has been active. She has had 4 doses of nifedipine 10 mg as well as terbutaline of lean 0.25 mg subcu and had improvement in contractions and they have resumed. They are quite painful. Her past OB history is remarkable for premature onset of uterine contractions at 35 weeks and normal spontaneous vaginal delivery at 37 and half weeks of a viable female infant weighing 8 lb 6 oz at [facility]. There wer e no complications. She has had early care and EDC based on LMP in 7 week ultrasound. This has been complicated by placenta previa which has resolved on ultrasound 2 weeks ago. Fluid was noted to be low normal on this ultrasound with an ANURADHA of 8 and a repeat ultrasound was scheduled for tomorrow. Serology syphilis, HIV, hepatitis-B, hepatitis-C are all negative A positive, rubella immune Immune to chickenpox. HSV 1 positive but HSV 2- GBS rapid strep is pending Past medical history: 1. Irritable bowel syndrome 2. 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 [employer] FHx: no congenital birthdefects Evaluation Evaluation Laboratory results: Laboratory Tests 01/29/19 01/29/19 16:00 17:40 WBC 12.3 H RBC 4.41 Hgb 13.0 Hct 38.9 MCV 88.2 MCH 29.5 MCHC 33.4 RDW 13.6 Plt Count 182 Neut % (Auto) 71.6 Lymph % (Auto) 20.9 L [place] % (Auto) 5.9 Eos % (Auto) 1.0 L Baso % (Auto) 0.6 Neut # (Auto) 8800 H Lymph # (Auto) 2600 [place] # (Auto) 700 Eos # (Auto) 100 Baso # (Auto) 100 Urine Color Yellow Urine Appearance Clear Urine pH 6.5 Ur Specific [place] <=1.005 Urine Protein Negative Urine Glucose (UA) Negative Urine Ketones Negative Urine Occult Blood Negative Urine Nitrate Negative Urine Bilirubin Negative Urine Urobilinogen 0.2 Ur Leukocyte Esterase Negative Urine RBC None seen Urine WBC 0-1/hpf Ur Squamous Epith Cells 1-5 /hpf Urine Bacteria None seen Ur Culture Indicated? Cult not indicated PFSH Surgical History History of tonsillectomy (Resolved) S/P tonsillectomy (Resolved) Family History Grandfather No problems noted. Grandmother Lung cancer Grandmother No problems noted. Brother No problems noted. Social History Smoking Status: Former smoker Family History Grandfather No problems noted. Grandmother Lung cancer Grandmother No problems noted. Brother No problems noted. Social History Smoking Status: Former smoker Meds Home Medications Medication Instructions Recorded Confirmed Type lactobacillus combination no.8 3 3,000 mmu cells PO DAILY 06/07/18 07/16/18 History billion cell capsule Allergies Allergy/AdvReac Type Severity Reaction Status Date / Time No Known Drug Allergies Allergy Verified 07/16/18 13:26 Review of Systems Review of Systems Negative for any change in fluid. Negative for any headaches. Negative for any swelling. Negative for any visual changes. Baby has been active No abdominal pain other than contractions No urinary symptoms No fevers, chills, rashes All systems reviewed & are unremarkable except as noted in HPI and below Exam Narrative Exam Narrative: Patient is alert and oriented x3 and vital signs are stable HEENT: Unremarkable Neck is supple without adenopathy Chest: Clear to auscultation without wheezes rhonchi or crackles Cor: Regular rate and rhythm without any murmur Abdomen: Positive bowel sounds, soft, gravid, contractions palpate firm, vertex presentation estimated weight 4.5 lb Uterine contractions are for firm Extremities: No edema, DTRs are intact Skin no rashes Cervical check shows that head is low -1 with cervix posterior to mid position very soft 50-60% effaced and finger tip dilated heart tones baseline in the 140s to 150s with accelerations with moderate variability and no decelerations Uterine contractions firm to palpation every 2-4 minutes Objective Labs Result Diagrams: 01/29/19 17:40 Labs: Laboratory Results - last 24 hr 01/29/19 01/29/19 16:00 17:40 WBC 12.3 H RBC 4.41 Hgb 13.0 Hct 38.9 MCV 88.2 MCH 29.5 MCHC 33.4 RDW 13.6 Plt Count 182 Neut % (Auto) 71.6 Lymph % (Auto) 20.9 L [place] % (Auto) 5.9 Eos % (Auto) 1.0 L Baso % (Auto) 0.6 Neut # (Auto) 8800 H Lymph # (Auto) 2600 [place] # (Auto) 700 Eos # (Auto) 100 Baso # (Auto) 100 Urine Color Yellow Urine Appearance Clear Urine pH 6.5 Ur Specific [place] <=1.005 Urine Protein Negative Urine Glucose (UA) Negative Urine Ketones Negative Urine Occult Blood Negative Urine Nitrate Negative Urine Bilirubin Negative Urine Urobilinogen 0.2 Ur Leukocyte Esterase Negative Urine RBC None seen Urine WBC 0-1/hpf Ur Squamous Epith Cells 1-5 /hpf Urine Bacteria None seen Ur Culture Indicated? Cult not indicated
[2019-01-29] MEDS: MAGNESIUM SULFATE 20 GM/500 ML IV.SOLN IV (18:18)
[2019-01-29 18:23] LABS: Strep Grp B PCR NEG for Grp B Strep
[2019-01-29] MEDS: BETAMETHASONE 30 MG/5 ML MDV 12 MG IM (18:55)
[2019-01-29] MEDS: LACTATED RINGERS 1,000 ML 100 ML IV (18:56)
--- NOTE | 2019-01-29 19:04 | PM.OBHP.1 ---
OB HPI History of Present Condition Chief complaint: Observation Narrative: Ambreen Montague is a 28 year old female Evaluation Evaluation Laboratory results: Laboratory Tests 01/29/19 01/29/19 01/29/19 16:00 16:35 17:40 WBC 12.3 H RBC 4.41 Hgb 13.0 Hct 38.9 MCV 88.2 MCH 29.5 MCHC 33.4 RDW 13.6 Plt Count 182 Neut % (Auto) 71.6 Lymph % (Auto) 20.9 L [place] % (Auto) 5.9 Eos % (Auto) 1.0 L Baso % (Auto) 0.6 Neut # (Auto) 8800 H Lymph # (Auto) 2600 [place] # (Auto) 700 Eos # (Auto) 100 Baso # (Auto) 100 Urine Color Yellow Urine Appearance Clear Urine pH 6.5 Ur Specific [place] <=1.005 Urine Protein Negative Urine Glucose (UA) Negative Urine Ketones Negative Urine Occult Blood Negative Urine Nitrate Negative Urine Bilirubin Negative Urine Urobilinogen 0.2 Ur Leukocyte Esterase Negative Urine RBC None seen Urine WBC 0-1/hpf Ur Squamous Epith Cells 1-5 /hpf Urine Bacteria None seen Ur Culture Indicated? Cult not indicated Group B Strep (PCR) Neg for grp b strep PFSH Surgical History History of tonsillectomy (Resolved) S/P tonsillectomy (Resolved) Family History Grandfather No problems noted. Grandmother Lung cancer Grandmother No problems noted. Brother No problems noted. Social History Smoking Status: Former smoker Family History Grandfather No problems noted. Grandmother Lung cancer Grandmother No problems noted. Brother No problems noted. Social History Smoking Status: Former smoker Meds Home Medications Medication Instructions Recorded Confirmed Type lactobacillus combination no.8 3 3,000 mmu cells PO DAILY 06/07/18 07/16/18 History billion cell capsule Allergies Allergy/AdvReac Type Severity Reaction Status Date / Time No Known Drug Allergies Allergy Verified 07/16/18 13:26 Objective Labs Result Diagrams: 01/29/19 17:40 Labs: Laboratory Results - last 24 hr 01/29/19 01/29/19 01/29/19 16:00 16:35 17:40 WBC 12.3 H RBC 4.41 Hgb 13.0 Hct 38.9 MCV 88.2 MCH 29.5 MCHC 33.4 RDW 13.6 Plt Count 182 Neut % (Auto) 71.6 Lymph % (Auto) 20.9 L [place] % (Auto) 5.9 Eos % (Auto) 1.0 L Baso % (Auto) 0.6 Neut # (Auto) 8800 H Lymph # (Auto) 2600 [place] # (Auto) 700 Eos # (Auto) 100 Baso # (Auto) 100 Urine Color Yellow Urine Appearance Clear Urine pH 6.5 Ur Specific [place] <=1.005 Urine Protein Negative Urine Glucose (UA) Negative Urine Ketones Negative Urine Occult Blood Negative Urine Nitrate Negative Urine Bilirubin Negative Urine Urobilinogen 0.2 Ur Leukocyte Esterase Negative Urine RBC None seen Urine WBC 0-1/hpf Ur Squamous Epith Cells 1-5 /hpf Urine Bacteria None seen Ur Culture Indicated? Cult not indicated Group B Strep (PCR) Neg for grp b strep
== END 2019-01-29 18:20 | disposition home or self-care (01) ==
PROVIDERS: Admitting Provider Family Medicine; PCP Family Medicine; Visit Provider Family Medicine
DX: O60.03 Preterm labor without delivery, third trimester (principal); Z3A.33 33 weeks gestation of pregnancy
CPT/HCPCS: 36415; 59025; 59050; 76815; 81001; 85025; 86850; 86900; 86901; 87081; 87653; 96360; 96372; G0378; G0379; J0702; J3475

== ENCOUNTER 2019-02-03 12:01 | Outpatient (CLI) | payer OTHER, MEDICAID, SELFPAY ==
--- NOTE | 2019-02-03 13:25 | PM.OBTRLD ---
Visit Information Visit Information Date of evaluation: 02/03/19 Primary OB Provider: Roberto Moran On-call OB Provider: Xin Rubio Reason for Evaluation: Yes non-stress test non-stress test reason: other ( labor) [facility] Medical History Chronic pelvic pain in female (Chronic) Irritable bowel syndrome (IBS) (Chronic) Hx of ovarian cyst (Resolved) Surgical History History of tonsillectomy (Resolved) S/P tonsillectomy (Resolved) Family History Grandfather No problems noted. Grandmother Lung cancer Grandmother No problems noted. Brother No problems noted. Social History Smoking Status: Former smoker Family History Grandfather No problems noted. Grandmother Lung cancer Grandmother No problems noted. Brother No problems noted. Social History Smoking Status: Former smoker Evaluation Evaluation Baseline heart rate: 150 Variability: Moderate (11-25) monitor accelerations: Present monitor decelerations: Absent Contraction Frequency (minutes): 0 Category of Tracing: I Diagnosis, Plan/Disposition Final Diagnosis (1) 35 weeks gestation of : Current Visit: No Status: Acute (2) labor: Current Visit: No Status: Acute Plan/Disposition Plan: Patient is a 28-year-old at 35 weeks gestation who was hospitalized earlier this week at [place] for labor. Labor did not progress. She was discharged home and instructed to have an NST this week. Denies contractions today and no contractions on monitor. NST reactive. Follow up with Dr. Moran as scheduled. OB Disposition: home
--- NOTE | 2019-02-03 13:29 | P.TNLD_ITS ---
Visit Information Visit Information Date of evaluation: 02/03/19 Primary OB Provider: Roberto Moran On-call OB Provider: Xin Rubio Reason for Evaluation: Yes non-stress test non-stress test reason: other ( labor) [facility] Medical History Chronic pelvic pain in female (Chronic) Irritable bowel syndrome (IBS) (Chronic) Hx of ovarian cyst (Resolved) Surgical History History of tonsillectomy (Resolved) S/P tonsillectomy (Resolved) Family History Grandfather No problems noted. Grandmother Lung cancer Grandmother No problems noted. Brother No problems noted. Social History Smoking Status: Former smoker Family History Grandfather No problems noted. Grandmother Lung cancer Grandmother No problems noted. Brother No problems noted. Social History Smoking Status: Former smoker Evaluation Evaluation Baseline heart rate: 150 Variability: Moderate (11-25) monitor accelerations: Present monitor decelerations: Absent Contraction Frequency (minutes): 0 Category of Tracing: I Diagnosis, Plan/Disposition Final Diagnosis (1) 35 weeks gestation of : Current Visit: No Status: Acute (2) labor: Current Visit: No Status: Acute Plan/Disposition Plan: Patient is a 28-year-old at 35 weeks gestation who was hospitalized earlier this week at [place] for labor. Labor did not progress. She was discharged home and instructed to have an NST this week. Denies contractions today and no contractions on monitor. NST reactive. Follow up with Dr. Moran as scheduled. OB Disposition: home
== END 2019-02-03 12:48 | disposition home or self-care (01) ==
LOC: OB 02-07 14:14
PROVIDERS: PCP Family Medicine; Visit Provider Family Medicine
DX: O60.03 Preterm labor without delivery, third trimester (principal); Z3A.35 35 weeks gestation of pregnancy
CPT/HCPCS: 59025; 84112; G0378; G0379

== ENCOUNTER → 2019-02-10 12:00 | Outpatient (CLI) | payer OTHER, MEDICAID, SELFPAY ==
--- NOTE | 2019-02-10 | DI.US.S_ITS ---
PROCEDURE: US OB LIMITED INDICATIONS: ANURADHA OUTSIDE/PRIOR DATING DATA: Last menstrual period (LMP): 06/10/18. LMP-based estimated date of delivery (ERENDIRA): 03/17/19. First dating scan (date and location): 07/16/18. Estimated date of delivery (ERENDIRA) from first dating scan: 03/14/19. TECHNIQUE: Real-time scanning was performed of the fetus, with image documentation. Endovaginal scanning: Performed COMPARISON: [facility] OB <= 14 WEEKS FETUS, 07/26/2018, 13:07. [facility] OB <= 14 WEEKS FETUS, 07/16/2018, 14:14. [facility] OB FOLLOW UP, 01/16/2019, 10:30. [facility] OB FOLLOW UP, 12/20/2018, 10:09. [facility] OB >= 14 WEEKS FETUS, 11/01/2018, 9:10. [facility] OB LIMITED, 09/29/2018, 12:54. [facility] OB LIMITED, 01/29/2019, 15:57. FINDINGS: A single living intrauterine gestation is present. Presentation: Vertex. Placenta: Placental position is posterior, without previa. Placental tip measures 3.9 cm from the internal os Amniotic fluid index: 13.6 cm, normal range is 5-24 cm. heart rate: 140 beats per minute. Maternal cervical canal: 5.6 cm long. Normal lower limit is 2.5 cm. Estimated gestational age from initial scan: 35 weeks, 3 days Normal appearance of the four-chamber heart, chest/diaphragm, stomach, kidneys and urinary bladder. IMPRESSION: Single living intrauterine fetus in vertex presentation. Normal ANURADHA measuring 13.6 cm. This is increased since 01/29/19 (5.1 cm). Interval resolution of low-lying placenta Dictated by: Jeronimo Dejesus M.D. on 02/10/2019 at 13:41 Approved by: Jeronimo Dejesus M.D. on 02/10/2019 at 13:45
== END ==
PROVIDERS: PCP Family Medicine; Visit Provider Family Medicine
DX: Z03.71 Encounter for suspected problem with amniotic cavity and membrane ruled out (principal); Z3A.35 35 weeks gestation of pregnancy
CPT/HCPCS: 76815

== ENCOUNTER → 2019-02-20 09:51 | Outpatient (CLI) | payer OTHER, MEDICAID, SELFPAY ==
--- NOTE | 2019-02-20 | DI.US.S_ITS ---
PROCEDURE: US OB LIMITED INDICATIONS: ANURADHA OUTSIDE/PRIOR DATING DATA: Last menstrual period (LMP): 06/10/18. LMP-based estimated date of delivery (ERENDIRA): 03/17/19. First dating scan (date and location): 07/16/18 ([facility]). Estimated date of delivery (ERENDIRA) from first dating scan: 03/14/19. TECHNIQUE: Real-time scanning was performed of the fetus, with image documentation. Endovaginal scanning: Not performed COMPARISON: [facility], , US OB LIMITED, 02/10/2019, 12:11. FINDINGS: A single living intrauterine gestation is present. Presentation: Vertex Placenta: Placental position is posterior, without previa. Of note, visualization of the posterior placenta is limited secondary to positioning and advanced gestational age. Amniotic fluid index: 11.3 cm, normal range is 5-24 cm. heart rate: 133 beats per minute. Maternal cervical canal: The 4.3 cm long. Normal lower limit is 2.5 cm. Estimated gestational age from initial scan: 36 weeks and 6 days. Limited evaluation of the fetus demonstrates a prominent urinary bladder measuring approximately 29 mL without evidence for hydronephrosis or renal pelviectasis. IMPRESSION: 1.Single living intrauterine gestation at approximately 36 weeks and 6 days gestational age with a 4 quadrant ANURADHA measuring 11.3 cm. 2. Note of prominent urinary bladder measuring 29 mL in volume without evidence for urinary obstruction. Consider short interval followup imaging. Dictated by: Franklyn Harrington M.D. on 02/20/2019 at 12:04 Approved by: Franklyn Harrington M.D. on 02/20/2019 at 12:11
== END ==
PROVIDERS: PCP Family Medicine; Visit Provider Family Medicine
DX: Z03.71 Encounter for suspected problem with amniotic cavity and membrane ruled out (principal); Z3A.36 36 weeks gestation of pregnancy
CPT/HCPCS: 76815

== ENCOUNTER → 2019-03-06 10:37 | Outpatient (CLI) | payer OTHER, MEDICAID, SELFPAY ==
--- NOTE | 2019-03-06 | DI.US.S_ITS ---
PROCEDURE: US OB LIMITED INDICATIONS: ANURADHA OUTSIDE/PRIOR DATING DATA: Last menstrual period (LMP): 06/10/18. LMP-based estimated date of delivery (ERENDIRA): 03/17/19. First dating scan (date and location): 07/16/18. Estimated date of delivery (ERENDIRA) from first dating scan: 03/14/19. TECHNIQUE: Real-time scanning was performed of the fetus, with image documentation. Endovaginal scanning: None COMPARISON: [facility], OB LIMITED, 02/20/2019, 9:58. FINDINGS: A single living intrauterine gestation is present. Presentation: Vertex Placenta: Placental position is posterior, without previa. Amniotic fluid index: 10.1 cm, normal range is 5-24 cm. heart rate: 139 beats per minute. Maternal cervical canal: 4.1 cm long. Normal lower limit is 2.5 cm. Prominent distended urinary bladder is noted and measures 45 mL in volume on the current study. This was previously measured at 29 mL bilateral kidneys are normal in size and show no hydronephrosis. IMPRESSION: 1. Single live intrauterine with normal amount of amniotic fluid. 2. Distended urinary bladder, increased in volume compared to previous study. No hydronephrosis is noted in bilateral kidneys. Urinary outlet obstruction cannot be entirely excluded. Findings were reported to Dr. Moran at 11:25 AM on 03/06/19. Dictated by: Latrell Penn M.D. on 03/06/2019 at 11:18 Approved by: Latrell Penn M.D. on 03/06/2019 at 11:26
== END ==
PROVIDERS: PCP Family Medicine; Visit Provider Family Medicine
DX: Z03.71 Encounter for suspected problem with amniotic cavity and membrane ruled out (principal)
CPT/HCPCS: 76815

== ENCOUNTER 2019-03-06 20:59 | Inpatient (IN) | payer OTHER, MEDICAID, SELFPAY ==
[2019-03-06] MEDS: LACTATED RINGERS 1,000 ML 100 ML IV (21:30)
[2019-03-06 21:46] LABS: Add Manual Diff / Slide Review NO; Basophils Absolute Auto 100 /uL (0-100); Basophils Percent Auto 0.7 % (0-2); Eosinophils Absolute Auto 100 /uL (0-450); Eosinophils Percent Auto 0.9 % (2-4); Hematocrit 39.5 % (36-46); Hemoglobin 13.5 g/dL (12.0-16.0); Lymphocytes Absolute Auto 2400 /uL (1100-4500); Lymphocytes Percent Auto 21.5 % (25-40); Mean Corpuscular HGB Conc 34.1 % (30-36); Mean Corpuscular Hemoglobin 29.7 PG (26-34); Monocytes Absolute Auto 600 /uL (0-900); Monocytes Percent Auto 5.8 % (3-14); Neutrophils Absolute Auto 7800 /uL (1500-7000); Neutrophils Percent Auto 71.1 % (50-75); Platelet Count 206 X10^3/uL (150-400); Red Blood Cell Count 4.54 X10^6/uL (4.0-5.2); Red Cell Distribution Width 14.7 % (11.6-14.8)
[2019-03-06 22:06] VITALS: BP 139/79
--- NOTE | 2019-03-07 01:20 | PM.OBHP.1 ---
OB HPI History of Present Condition Chief complaint: Narrative: Ambreen Montague is a 28 year old female at 38 2 7 weeks by good dates who presents with spontaneous onset of contractions after spontaneous rupture 820 this evening. Clear fluid. No fever. Otherwise feeling well. No other significant new changes or complaints. Increasing intensity of contractions and presented to labor and delivery. 4 cm at presentation. Grossly ruptured. Patient with a history of labor starting around 33 weeks. Was actually transferred to [place] on magnesium and started on Procardia. She has been on that until 37 weeks of gestational age. Having no significant other problems or concerns. Patient also had history of placenta previa which was followed and resolved around 30 weeks. No other significant issues or changes. Past Ob history is significant for 37 and half week vaginal delivery 8 lb 6 oz at the hospital no complications Dates were obtained with 7 week ultrasound which confirmed her vaginal delivery. labs all negative except for H SV 1 positive. GBS was negative. Blood type is A-positive. Past medical history significant for anxiety, irritable bowel syndrome, ovarian cyst Past surgical history tonsillectomy, carpal tunnel syndrome No drugs no alcohol no tobacco. 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 Early Family history shows no defects or significant problem. Evaluation Evaluation Baseline heart rate: 140 Category of Tracing: I Cervical dilation (cm): 4 Laboratory results: Laboratory Tests 03/06/19 03/06/19 21:30 21:30 WBC 11.0 RBC 4.54 Hgb 13.5 Hct 39.5 MCV 87.0 MCH 29.7 MCHC 34.1 RDW 14.7 Plt Count 206 Neut % (Auto) 71.1 Lymph % (Auto) 21.5 L [place] % (Auto) 5.8 Eos % (Auto) 0.9 L Baso % (Auto) 0.7 Neut # (Auto) 7800 H Lymph # (Auto) 2400 [place] # (Auto) 600 Eos # (Auto) 100 Baso # (Auto) 100 Blood Type A Positive Antibody Screen Negative Non-invasive Membranes Rupture Test: positive Comments: Grossly ruptured [facility] Surgical History History of tonsillectomy (Resolved) S/P tonsillectomy (Resolved) Family History Grandfather No problems noted. Grandmother Lung cancer Grandmother No problems noted. Brother No problems noted. Social History Smoking Status: Never smoker Family History Grandfather No problems noted. Grandmother Lung cancer Grandmother No problems noted. Brother No problems noted. Social History Smoking Status: Never smoker Comment: See H&P Meds Home Medications Medication Instructions Recorded Confirmed Type lactobacillus combination no.8 3 3,000 mmu cells PO DAILY 06/07/18 07/16/18 History billion cell capsule Allergies Allergy/AdvReac Type Severity Reaction Status Date / Time No Known Drug Allergies Allergy Verified 07/16/18 13:26 Exam Vital Signs (past 8 hours): - 03/06/19 22:06 Blood Pressure 139/79 Narrative Exam Narrative: Alert female no acute distress. Lungs clear. Heart regular rate and rhythm. Abdomen is gravid vertex extremities without cyanosis clubbing edema Objective Labs Result Diagrams: 03/06/19 21:30 Labs: Laboratory Results - last 24 hr 03/06/19 03/06/19 21:30 21:30 WBC 11.0 RBC 4.54 Hgb 13.5 Hct 39.5 MCV 87.0 MCH 29.7 MCHC 34.1 RDW 14.7 Plt Count 206 Neut % (Auto) 71.1 Lymph % (Auto) 21.5 L [place] % (Auto) 5.8 Eos % (Auto) 0.9 L Baso % (Auto) 0.7 Neut # (Auto) 7800 H Lymph # (Auto) 2400 [place] # (Auto) 600 Eos # (Auto) 100 Baso # (Auto) 100 Blood Type A Positive Antibody Screen Negative Assessment and Plan Assessment and Plan Assessment and Plan narrative: grossly ruptured. Normal heart rate. In active labor. Prepare for an STD. Epidural desired
--- NOTE | 2019-03-07 01:28 | P.HPOB_ITS ---
OB HPI History of Present Condition Chief complaint: Narrative: Ambreen Montague is a 28 year old female at 38 2 7 weeks by good dates who presents with spontaneous onset of contractions after spontaneous rupture 820 this evening. Clear fluid. No fever. Otherwise feeling well. No other significant new changes or complaints. Increasing intensity of contractions and presented to labor and delivery. 4 cm at presentation. Grossly ruptured. Patient with a history of labor starting around 33 weeks. Was actually transferred to [place] on magnesium and started on Procardia. She has been on that until 37 weeks of gestational age. Having no significant other problems or concerns. Patient also had history of placenta previa which was followed and resolved around 30 weeks. No other significant issues or changes. Past Ob history is significant for 37 and half week vaginal delivery 8 lb 6 oz at the hospital no complications Dates were obtained with 7 week ultrasound which confirmed her vaginal delivery. labs all negative except for H SV 1 positive. GBS was negative. Blood type is A-positive. Past medical history significant for anxiety, irritable bowel syndrome, ovarian cyst Past surgical history tonsillectomy, carpal tunnel syndrome No drugs no alcohol no tobacco. 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 Early Family history shows no defects or significant problem. Evaluation Evaluation Baseline heart rate: 140 Category of Tracing: I Cervical dilation (cm): 4 Laboratory results: Laboratory Tests 03/06/19 03/06/19 21:30 21:30 WBC 11.0 RBC 4.54 Hgb 13.5 Hct 39.5 MCV 87.0 MCH 29.7 MCHC 34.1 RDW 14.7 Plt Count 206 Neut % (Auto) 71.1 Lymph % (Auto) 21.5 L [place] % (Auto) 5.8 Eos % (Auto) 0.9 L Baso % (Auto) 0.7 Neut # (Auto) 7800 H Lymph # (Auto) 2400 [place] # (Auto) 600 Eos # (Auto) 100 Baso # (Auto) 100 Blood Type A Positive Antibody Screen Negative Non-invasive Membranes Rupture Test: positive Comments: Grossly ruptured [facility] Surgical History History of tonsillectomy (Resolved) S/P tonsillectomy (Resolved) Family History Grandfather No problems noted. Grandmother Lung cancer Grandmother No problems noted. Brother No problems noted. Social History Smoking Status: Never smoker Family History Grandfather No problems noted. Grandmother Lung cancer Grandmother No problems noted. Brother No problems noted. Social History Smoking Status: Never smoker Comment: See H&P Meds Home Medications Medication Instructions Recorded Confirmed Type lactobacillus combination no.8 3 3,000 mmu cells PO DAILY 06/07/18 07/16/18 History billion cell capsule Allergies Allergy/AdvReac Type Severity Reaction Status Date / Time No Known Drug Allergies Allergy Verified 07/16/18 13:26 Exam Vital Signs (past 8 hours): - 03/06/19 22:06 Blood Pressure 139/79 Narrative Exam Narrative: Alert female no acute distress. Lungs clear. Heart regular rate and rhythm. Abdomen is gravid vertex extremities without cyanosis clubbing edema Objective Labs Result Diagrams: 03/06/19 21:30 Labs: Laboratory Results - last 24 hr 03/06/19 03/06/19 21:30 21:30 WBC 11.0 RBC 4.54 Hgb 13.5 Hct 39.5 MCV 87.0 MCH 29.7 MCHC 34.1 RDW 14.7 Plt Count 206 Neut % (Auto) 71.1 Lymph % (Auto) 21.5 L [place] % (Auto) 5.8 Eos % (Auto) 0.9 L Baso % (Auto) 0.7 Neut # (Auto) 7800 H Lymph # (Auto) 2400 [place] # (Auto) 600 Eos # (Auto) 100 Baso # (Auto) 100 Blood Type A Positive Antibody Screen Negative Assessment and Plan Assessment and Plan Assessment and Plan narrative: grossly ruptured. Normal heart rate. In active labor. Prepare for an STD. Epidural desired
--- NOTE | 2019-03-07 01:28 | PM.OBPRVD ---
Delivery date: 03/07/19 Intrapartal events: None Cervical ripening method: none Induction method: none Delivery monitor: external uterine Route of delivery: Episiotomy description: None L&D Laceration Description: None Estimated blood loss (mL): 150 Anesthesia type: Epidural Complications: None Narrative: Patient presented at 4 cm grossly ruptured with clear fluid. heart monitor was reactive and category 1 throughout the course of her delivery. Patient rapidly progressed through 1st stage after epidural was placed with excellent control. Second stage was began. A small amount of time to get her to learn how to push but otherwise baby came down well delivered relatively rapidly less than half an hour. Head was delivered occiput anterior without complications. Nuchal cord x1. Reduced on the perineum baby delivered. Upon to mom's abdomen. Cord was allowed to settle and drain and quit pulsing and then cord was clamped by me and cut by dad. No resuscitation was required. No vaginal tears or early BL tears. No repairs done. Placenta delivered spontaneous intact 3 vessels. Bleeding less 150 cc. Pitocin was given after delivery of the placenta. Mother and baby in stable condition. Plan for aftercare: Routine.
[2019-03-07 01:38] VITALS: BP 132/83
[2019-03-07] MEDS: IBUPROFEN 600 MG TABLET PO ×4 (03:06→22:09)
[2019-03-07] MEDS: DOCUSATE 250 MG CAPSULE PO (08:53)
[2019-03-08 05:30] LABS: Hematocrit 34.9 % (36-46); Hemoglobin 11.8 g/dL (12.0-16.0)
[2019-03-08] MEDS: DOCUSATE 250 MG CAPSULE PO (08:20)
[2019-03-08] MEDS: IBUPROFEN 600 MG TABLET PO (08:20)
--- NOTE | 2019-03-08 09:02 | P.DS_ITS ---
Discharge Providers Date of admission: 03/06/19 20:59 Discharge Date: 03/08/19 Primary care physician: Roberto Moran MD Consults: 03/07/19 15:16 Consult to Mental Health Associate Routine Comment: Discharge provider: Roberto Moran MD Summary Date Patient Seen: 03/08/19 Time Patient Seen: 09:00 Procedures: An Hospital Course: Patient presented with rupture see delivery note. She was transferred to recovery and did extremely well. She was up showering the next day. Breast- feeding was going well she was feeling well or matter crit was 34 on follow-up. She otherwise has no significant problems or bleeding is minimal mostly feeling well and pain is limited and she is feeling great tolerating p.o. and ready to go home Peripartum Data Infant Delivery Method: Natural Vaginal Laceration description: None Episiotomy description: None Procedures: Epidural complications: none Status at Discharge Cognitive/behavioral status at discharge: oriented Functional status at discharge: independent ambulation Overall status at discharge: patient is progressing back to baseline Time Spent with Patient Total time spent providing and/or coordinating discharge services: Objective Labs Result Diagrams: 03/08/19 05:20 Labs: Laboratory Results - last 24 hr 03/08/19 05:20 Hgb 11.8 L Hct 34.9 L Exam Narrative Exam Narrative: Alert smiling female in no acute distress. Lungs are clear. Heart regular rate and rhythm. Abdomen is soft positive bowel sounds the wrist for extremities without cyanosis clubbing edema. Neurologic exam was normal reflexes no clonus Discharge Plan Discharge Plan Patient Disposition: Home Discharge Med Rec/Prescriptions Prescriptions: New acetaminophen 325 mg Tablet 650 mg PO Q6HR PRN (Reason: Pain, Mild (1-3)) Qty: 30 RF: 0 ibuprofen 600 mg Tablet 600 mg PO Q6HR PRN (Reason: Pain, Mild (1-3)) Qty: 30 RF: 0 Continued lactobacillus combination no.8 [Adult Probiotic] 3 billion cell capsule 3,000 mmu cells PO DAILY RF: 0 Follow up/Referrals: Roberto Moran MD [Primary Care Provider] - 6 Weeks Provider Discharge Instructions Diet: Diet as Tolerated Activity: no sex for 4-6 weeks. increase activity as tolerated. Sleep when able Discharge Data Primary Care Provider: Roberto Moran Attending Provider: Luisa,Roberto P Admit Date/Time: 03/06/19 20:59
[2019-03-08 09:20] VITALS: BP 132/83; PULSE 79; RESP 16; TEMP 36.8
== END 2019-03-08 12:00 | disposition home or self-care (01) | DRG 560 ==
PROVIDERS: Admitting Provider Family Medicine; PCP Family Medicine; Visit Provider Family Medicine
DX: O69.81X0 Labor and delivery complicated by cord around neck, without compression, not applicable or unspecified (principal); Z37.0 Single live birth; Z3A.38 38 weeks gestation of pregnancy
CPT/HCPCS: 01967; 36415; 59050; 76815; 85014; 85018; 85025; 86850; 86900; 86901; G0379

== ENCOUNTER → 2019-10-22 15:10 | Outpatient (CLI) | payer OTHER, MEDICAID, SELFPAY | PROVIDERS: PCP Family Medicine | DX: Z23 Encounter for immunization (principal) | CPT/HCPCS: 90471; 90686 ==

== ENCOUNTER → 2020-11-02 | Outpatient (CLI) | payer OTHER, MEDICAID, SELFPAY | PROVIDERS: PCP Family Medicine; Referring Provider Internal Medicine; Visit Provider Internal Medicine | DX: Z23 Encounter for immunization (principal) ==

== ENCOUNTER → 2020-11-29 16:22 | Outpatient (CLI) | payer OTHER, MEDICAID, SELFPAY ==
[2020-11-29] MEDS: COVID-19 VACC(MODERNA-1)/PF 100 MCG/0.5 ML VIAL IM (16:33)
== END ==
PROVIDERS: PCP Family Medicine; Visit Provider Internal Medicine
DX: Z23 Encounter for immunization (principal)
CPT/HCPCS: 0011A; 91301

== ENCOUNTER → 2020-12-25 14:02 | Outpatient (CLI) | payer OTHER, MEDICAID, SELFPAY ==
[2020-12-25] MEDS: COVID-19 VACC #2, MRNA(MOD) 100 MCG/0.5 ML VIAL IM (14:10)
== END ==
PROVIDERS: PCP Family Medicine; Visit Provider Internal Medicine
DX: Z23 Encounter for immunization (principal)
CPT/HCPCS: 0012A; 91301

== ENCOUNTER → 2021-04-16 08:38 | Outpatient (CLI) | payer OTHER, MEDICAID, SELFPAY ==
--- NOTE | 2021-04-16 | DI.NM.S_ITS ---
PROCEDURE: NM UPTAKE AND SCAN RADIOPHARMACEUTICAL: 380 ?Ci I-123 sodium iodide by mouth. INDICATIONS: Autoimmune thyroiditis TECHNIQUE: I-123 sodium iodide was administered orally. Anterior neck images were obtained, and iodine uptake by the thyroid gland calculated using tap and die maker technician's software. COMPARISON: None. FINDINGS: Morphology: The thyroid gland has normal morphology and uniform activity. No 'cold' or 'hot' thyroid nodules are identified. Uptake: 6 hour thyroid uptake is 16.9% ; normal ranges are from 6-18%. 24 hour thyroid uptake is 31.0% ; normal ranges are from 10-30%. IMPRESSION: Mildly elevated 24 hour thyroid uptake. 6 hour thyroid uptake is within normal limits. Dictated by: Jeronimo Dejesus M.D. on 04/17/2021 at 11:57 Approved by: Jeronimo Dejesus M.D. on 04/17/2021 at 12:01
== END ==
PROVIDERS: PCP Family Medicine; Referring Provider Family Medicine; Visit Provider Family Medicine
DX: E06.3 Autoimmune thyroiditis (principal)
CPT/HCPCS: 78014; A9516

== ENCOUNTER 2022-03-20 11:58 | Emergency (ER) | payer OTHER, MEDICAID, SELFPAY ==
[2022-03-20] VITALS (10 sets, daily range): BP systolic 107–136; BP diastolic 59–80; PULSE 87–112; RESP 18; TEMP 37.1–37.7; O2SAT 95–100; BMI 24.8
--- NOTE | 2022-03-20 12:24 | DI.RAD.S_ITS ---
PROCEDURE: XR CHEST 1V INDICATIONS: covid pneumonia or patchy? TECHNIQUE: One view of the chest was acquired. COMPARISON: [facility], CR, XR CHEST 1 VIEW, 03/09/2021, 20:23. FINDINGS: Surgical changes and devices: None. Lungs and pleura: Dense, focal airspace consolidation is present within the right upper lobe and at the left lateral lung base. There is diffuse interstitial prominence as well. No pleural effusion or pneumothorax. Mediastinum: Mediastinal contours appear normal. Heart size is normal. Bones and chest wall: No suspicious bony lesions. Overlying soft tissues appear unremarkable. IMPRESSION: Multifocal pneumonia. Findings could be consistent with COVID-19 pneumonia if clinically indicated. Short interval followup is recommended with resolution of the patient's symptoms to ensure there is no underlying pulmonary pathology. Dictated by: Lana Luna M.D. on 03/20/2022 at 13:27 Approved by: Lana Luna M.D. on 03/20/2022 at 13:28
[2022-03-20] MEDS: diphenhydrAMINE 50 MG/ML VIAL 25 MG IV (12:47)
[2022-03-20] MEDS: ONDANSETRON 4 MG/2 ML INJ IV (12:47)
[2022-03-20] MEDS: KETOROLAC 30 MG/ML VIAL 15 MG IV (12:47)
[2022-03-20] MEDS: SODIUM CHLORIDE 0.9% 1,000 ML 1000 ML IV (12:50)
--- NOTE | 2022-03-20 13:11 | ED.URI ---
HPI - URI/Sore Throat <THANIA Kimball - Last Filed: 03/20/22 15:08> General Chief Complaint: Upper Respiratory Symptoms Stated Complaint: high fever covid + high heart rate Time Seen by Provider: 03/20/22 12:13 Source: patient Mode of arrival: Ambulatory History of Present Illness HPI Narrative: This is a 31-year-old female who is COVID positive, on day 5 of her symptoms who presents to the emergency department complaining of a headache and fever. She states she took Tylenol at 1000 hours in ibuprofen at 0500 hours, and her fever was 103 at home today. Patient denies any difficulty breathing, wheezing, or shortness of breath or feeling faint. States that she has had chills, muscle aches, feels fatigued, and is having night sweats. She denies any vomiting or diarrhea but states that she feels nauseated. Related Data Home Medications Medication Instructions Recorded Confirmed cholecalciferol (vitamin D3) 125 6,000 unit PO DAILY 03/22/22 03/22/22 mcg (5,000 unit) tablet (Vitamin D3) dextroamphetamine-amphetamine 20 20 mg PO BID 03/22/22 03/22/22 mg tablet (Adderall) Previous Rx's Medication Instructions Recorded acetaminophen 325 mg tablet 650 mg PO Q6HR PRN #30 tab 03/08/19 ibuprofen 600 mg tablet 600 mg PO Q6HR PRN #30 tab 03/08/19 methocarbamol 500 mg tablet 500 mg PO TID PRN #14 tab 03/20/22 nirmatrelvir 150 mg x 2-ritonavir See Rx Instructions .ROUTE 03/20/22 100 mg tablet (EUA) (Paxlovid .COMPLEX #30 tab (EUA)) Allergies Allergy/AdvReac Type Severity Reaction Status Date / Time No Known Drug Allergies Allergy Verified 07/16/18 13:26 Review of Systems <THANIA Kimball - Last Filed: 03/20/22 15:08> Review of Systems Narrative: General: endorses fever, chills, malaise, night sweats, and fatigue Head/Neck: denies headache, neck pain, dizziness Eyes: denies visual changes, eye pain Cardio: denies chest pain, palpitations, edema Respiratory: denies dyspnea, cough, orthopnea GI: denies abdominal pain, vomiting, or diarrhea, endorses nausea : denies dysuria, hematuria, urinary retention, frequency or incontinence MSK: denies joint pain, muscle weakness Skin: denies rash, itching, skin lesions or other Neuro: denies numbness, tingling Patient History <PALOMA KimballP - Last Filed: 03/20/22 15:08> Medical History Chronic pelvic pain in female Hx of ovarian cyst Irritable bowel syndrome (IBS) Surgical History History of tonsillectomy S/P tonsillectomy Family History Grandfather No problems noted. Grandmother Lung cancer Grandmother No problems noted. Brother No problems noted. Social History household members: significant other and children Smoking Status: Former smoker Smoking Status: Former smoker Substance Use Type: does not use Exam <THANIA Kimball - Last Filed: 03/20/22 15:08> Narrative Exam Narrative: Independently reviewed vitals signs and nursing notes. General: cooperative, comfortable, in no acute distress, well developed and well groomed Head: atraumatic, symmetrical facial expressions Neck: supple, atraumatic, without lymphadenopathy. Eyes: pupils equal round and reactive, EOMI, conjunctiva normal Nose: nares patent, no rhinorrhea Mouth/Throat: uvula midline, moist mucus membranes Cardiovascular: Sinus tachycardia no peripheral edema, warm extremities Respiratory: normal effort, able to speak in complete sentences, no audible wheezing, stridor, or rales. No retractions, patient is tachypneic, breath sounds are diminished in the right middle lobe, left lower lobe, clear throughout other [place], no wheezing, no stridor, no productive GI: abdomen soft, nontender to palpation, nondistended, no masses, no exquisite tenderness with exam, without guarding or rebound. MSK: moves all extremities, ambulatory w/steady gait, neurovascularly intact, no weakness Skin: brisk capillary refill, no rash, no erythema Neuro: normal speech and cognition, A&O x3, normal tone Psych: mental status is grossly normal, congruent mood, normal affect, pleasant and cooperative Initial Vital Signs Initial Vital Signs: Vital Signs Temperature 98.8 F 03/20/22 12:17 Pulse Rate 112 H 03/20/22 12:17 Respiratory Rate 18 03/20/22 12:17 Blood Pressure 136/65 03/20/22 12:17 Pulse Oximetry 97 03/20/22 12:17 <Lloyd Luong MD - Last Filed: 03/24/22 07:21> Initial Vital Signs Initial Vital Signs: Vital Signs Temperature 98.8 F 03/20/22 12:17 Pulse Rate 112 H 03/20/22 12:17 Respiratory Rate 18 03/20/22 12:17 Blood Pressure 136/65 03/20/22 12:17 Pulse Oximetry 97 03/20/22 12:17 Course <THANIA Kimball - Last Filed: 03/20/22 15:08> Orders Ordered: Discontinued Medications Diphenhydramine HCl (Diphenhydramine 50 Mg/Ml Vial) 25 mg IV NOW ONE Stop: 03/20/22 12:25 Last Admin: 03/20/22 12:47 Dose: 25 mg Documented by: [email or web address] Sodium Chloride (Normal Saline 0.9%) 1,000 mls @ 1,000 mls/hr IV BOLUS ONE Stop: 03/20/22 13:23 Last Infusion: 03/20/22 14:19 Dose: 0 mls/hr Documented by: Admin: 03/20/22 12:50 Dose: 1,000 mls/hr Documented by: [email or web address] Ketorolac Tromethamine (Ketorolac 30 Mg/Ml Vial) 15 mg IM NOW ONE Stop: 03/20/22 12:17 Last Admin: 03/20/22 12:28 Dose: Not Given Documented by: WYATT Ketorolac Tromethamine (Ketorolac 30 Mg/Ml Vial) 15 mg IV NOW ONE Stop: 03/20/22 12:25 Last Admin: 03/20/22 12:47 Dose: 15 mg Documented by: [email or web address] Ondansetron HCl (Ondansetron 4 Mg/2 Ml Inj) 4 mg IV NOW ONE Stop: 03/20/22 12:25 Last Admin: 03/20/22 12:47 Dose: 4 mg Documented by: [email or web address] Pantoprazole Sodium (Pantoprazole 40 Mg Vial) 20 mg IV NOW ONE Stop: 03/20/22 13:40 Last Admin: 03/20/22 13:46 Dose: 20 mg Documented by: ROSEANNE Potassium Chloride (Potassium Chloride 20 Meq/15 Ml Udc) 40 meq PO NOW ONE Stop: 03/20/22 13:40 Last Admin: 03/20/22 13:46 Dose: 40 meq Documented by: ROSEANNE Consultations Consultation #1: Pharmacy about Paxlovid dosing, it is recommended in her case with COVID pneumonia. Patient consents to treatment. Not available here in the hospital, this was sent her pharmacy. Vital Signs Vital signs: Vital Signs - 8 hr 03/20/22 12:17 03/20/22 12:38 03/20/22 12:40 Temperature 98.8 F 99.4 F Pulse Rate 112 H 111 H 111 H Respiratory Rate 18 18 Blood Pressure 136/65 117/69 Pulse Oximetry 97 100 97 03/20/22 12:47 03/20/22 13:00 03/20/22 13:30 Temperature 99.4 F Pulse Rate 108 H 104 H Respiratory Rate Blood Pressure 112/66 107/59 L Pulse Oximetry 97 97 03/20/22 14:00 03/20/22 14:30 03/20/22 14:44 Temperature 99.8 F H Pulse Rate 105 H 87 Respiratory Rate Blood Pressure 109/62 Pulse Oximetry 99 <Lloyd Luong MD - Last Filed: 03/24/22 07:21> Orders Ordered: Discontinued Medications Diphenhydramine HCl (Diphenhydramine 50 Mg/Ml Vial) 25 mg IV NOW ONE Stop: 03/20/22 12:25 Last Admin: 03/20/22 12:47 Dose: 25 mg Documented by: [email or web address] Sodium Chloride (Normal Saline 0.9%) 1,000 mls @ 1,000 mls/hr IV BOLUS ONE Stop: 03/20/22 13:23 Last Infusion: 03/20/22 14:19 Dose: 0 mls/hr Documented by: Admin: 03/20/22 12:50 Dose: 1,000 mls/hr Documented by: [email or web address] Ketorolac Tromethamine (Ketorolac 30 Mg/Ml Vial) 15 mg IM NOW ONE Stop: 03/20/22 12:17 Last Admin: 03/20/22 12:28 Dose: Not Given Documented by: WYATT Ketorolac Tromethamine (Ketorolac 30 Mg/Ml Vial) 15 mg IV NOW ONE Stop: 03/20/22 12:25 Last Admin: 03/20/22 12:47 Dose: 15 mg Documented by: WEN Ondansetron HCl (Ondansetron 4 Mg/2 Ml Inj) 4 mg IV NOW ONE Stop: 03/20/22 12:25 Last Admin: 03/20/22 12:47 Dose: 4 mg Documented by: WEN Pantoprazole Sodium (Pantoprazole 40 Mg Vial) 20 mg IV NOW ONE Stop: 03/20/22 13:40 Last Admin: 03/20/22 13:46 Dose: 20 mg Documented by: ROSEANNE Potassium Chloride (Potassium Chloride 20 Meq/15 Ml Udc) 40 meq PO NOW ONE Stop: 03/20/22 13:40 Last Admin: 03/20/22 13:46 Dose: 40 meq Documented by: ROSEANNE Vital Signs Vital signs: Vital Signs - 8 hr 03/20/22 12:17 03/20/22 12:38 03/20/22 12:40 Temperature 98.8 F 99.4 F Pulse Rate 112 H 111 H 111 H Respiratory Rate 18 18 Blood Pressure 136/65 117/69 Pulse Oximetry 97 100 97 03/20/22 12:47 03/20/22 13:00 03/20/22 13:30 Temperature 99.4 F Pulse Rate 108 H 104 H Respiratory Rate Blood Pressure 112/66 107/59 L Pulse Oximetry 97 97 03/20/22 14:00 03/20/22 14:30 03/20/22 14:44 Temperature 99.8 F H Pulse Rate 105 H 87 Respiratory Rate Blood Pressure 109/62 Pulse Oximetry 99 MDM - URI/Sore Throat <THANIA Kimball - Last Filed: 03/20/22 15:08> Lab Data Result diagrams: 03/20/22 12:43 03/20/22 12:43 Labs: Lab Results 03/20/22 03/20/22 Range/Units 12:43 12:43 WBC 10.9 (4.5-11.0) X10^3/uL RBC 4.10 (4.0-5.2) X10^6/uL Hgb 12.2 (12.0-16.0) g/dL Hct 36.0 (36-46) % MCV 87.8 (80-100) fL MCH 29.6 (26-34) PG MCHC 33.8 (30-36) % RDW 13.8 (11.6-14.8) % Plt Count 252 (150-400) X10^3/uL Neut % (Auto) 94.0 H (50-75) % Lymph % (Auto) 3.4 L (25-40) % Crawford % (Auto) 2.3 L (3-14) % Eos % (Auto) 0.1 L (2-4) % Baso % (Auto) 0.2 (0-2) % Neut # (Auto) 49456 H (3183-7644) /uL Lymph # (Auto) 400 L (7992-6970) /uL Crawford # (Auto) 200 (0-900) /uL Eos # (Auto) 0 (0-450) /uL Baso # (Auto) 0 (0-100) /uL Sodium 137 (137-145) mmol/L Potassium 3.2 L (3.4-5.1) mmol/L Chloride 99 (98-107) mmol/L Carbon Dioxide 27 (22-32) mmol/L BUN 13 (7-17) mg/dL Creatinine 0.87 (0.52-1.04) mg/dL Estimated GFR > 60 (>60) mL/min BUN/Creatinine Ratio 14.9 (6-22) Glucose 151 H (70-100) mg/dL Calcium 8.9 (8.4-10.2) mg/dL Magnesium 2.0 (1.6-2.3) mg/dL Total Bilirubin 0.5 (0.2-1.3) mg/dL AST 30 (14-36) IU/L ALT 30 (<35) IU/L Alkaline Phosphatase 111 (38-126) U/L Total Protein 7.2 (6.3-8.2) g/dL Albumin 3.5 (3.5-5.0) g/dL Globulin 3.7 (1.7-4.1) g/dL Albumin/Globulin Ratio 0.9 L (1.0-2.8) Imaging Data Chest x-ray: Radiologist's Impression: PROCEDURE:? XR CHEST 1V ? INDICATIONS:? covid pneumonia or patchy? ? TECHNIQUE:? One view of the chest was acquired.? ? COMPARISON:? [facility], CR, XR CHEST 1 VIEW, 03/09/2021, 20:23. ? FINDINGS:? ? Surgical changes and devices:? None.? ? Lungs and pleura:? Dense, focal airspace consolidation is present within the right upper lobe and at the left lateral lung base.? There is diffuse interstitial prominence as well.? No pleural effusion or pneumothorax. ? Mediastinum:? Mediastinal contours appear normal.? Heart size is normal.? ? Bones and chest wall:? No suspicious bony lesions.? Overlying soft tissues appear unremarkable.? ? IMPRESSION:? Multifocal pneumonia.? Findings could be consistent with COVID-19 pneumonia if clinically indicated. Short interval followup is recommended with resolution of the patient's symptoms to ensure there is no underlying pulmonary pathology. ? ? Dictated by: Lana Luna M.D. on 03/20/2022 at 13:27 ? ? Approved by: Lana Luna M.D. on 03/20/2022 at 13:28 ? [facility] Narrative Medical decision making narrative: This is a 31-year-old female presents to the emergency department with COVID symptoms for the last 5 days, testing positive for COVID approximately 5 days ago. Patient went to urgent care yesterday was diagnosed with pneumonia after chest x-ray and given doxycycline and albuterol inhaler. Patient states that she knows that she has COVID and came to the emergency department because she did not feel that this was the right treatment. 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 She took ibuprofen at 0500 hours, Tylenol at 1000 hours, was febrile in triage, she was given 15 mg of IV Toradol, Zofran, complained of a headache, was given Benadryl and Protonix for heartburn. Patient states that she is taking omeprazole daily in the morning, it is just not on her med list. Patient was given strict return precautions for any worsening of her symptoms, she is given 1 L of normal saline for dehydration, she was given potassium for of potassium level 3.2, no leukocytosis, no gross abnormalities on her labs otherwise. P.o., states that she feels much better, headache is much improved, will follow-up with her primary care provider or return to the emergency department for any worsening. Patient was prescribed Paxil avid times 30 tabs, methocarbamol for muscle aches, Zofran for nausea, Toradol for headache, fever, and pain. Patient was encouraged to drink plenty of fluids, eat food with her medications, and follow-up with her primary doctor. She did not have any hypoxia, she did not have any dyspnea or abnormal breath sounds other than diminished in the right middle lobe. Her chest x-ray shows multifocal pneumonia, dense focal airspace consolidation in the right upper lobe in the left lateral lung base, no pleural effusion or pneumothorax, there is diffuse interstitial prominence. Discussed CDC guidelines for quarantine, mask wearing, physical distancing, and infection prevention measures such as frequent handwashing. Discussed supportive treatments: Tylenol/toradol as needed for pain/fever. OTC decongestant medications and/or antihistamines for symptomatic relief. Maintain adequate fluid intake. Follow-up with PCP as directed. Return to clinic/ER instructions discussed for new, not improving, or worsening symptoms. All questions answered. <Lloyd Luong MD - Last Filed: 03/24/22 07:21> Lab Data Labs: Lab Results 03/20/22 03/20/22 Range/Units 12:43 12:43 WBC 10.9 (4.5-11.0) X10^3/uL RBC 4.10 (4.0-5.2) X10^6/uL Hgb 12.2 (12.0-16.0) g/dL Hct 36.0 (36-46) % MCV 87.8 (80-100) fL MCH 29.6 (26-34) PG MCHC 33.8 (30-36) % RDW 13.8 (11.6-14.8) % Plt Count 252 (150-400) X10^3/uL Neut % (Auto) 94.0 H (50-75) % Lymph % (Auto) 3.4 L (25-40) % Crawford % (Auto) 2.3 L (3-14) % Eos % (Auto) 0.1 L (2-4) % Baso % (Auto) 0.2 (0-2) % Neut # (Auto) 13658 H (7918-1319) /uL Lymph # (Auto) 400 L (5462-8905) /uL Crawford # (Auto) 200 (0-900) /uL Eos # (Auto) 0 (0-450) /uL Baso # (Auto) 0 (0-100) /uL Sodium 137 (137-145) mmol/L Potassium 3.2 L (3.4-5.1) mmol/L Chloride 99 (98-107) mmol/L Carbon Dioxide 27 (22-32) mmol/L BUN 13 (7-17) mg/dL Creatinine 0.87 (0.52-1.04) mg/dL Estimated GFR > 60 (>60) mL/min BUN/Creatinine Ratio 14.9 (6-22) Glucose 151 H (70-100) mg/dL Calcium 8.9 (8.4-10.2) mg/dL Magnesium 2.0 (1.6-2.3) mg/dL Total Bilirubin 0.5 (0.2-1.3) mg/dL AST 30 (14-36) IU/L ALT 30 (<35) IU/L Alkaline Phosphatase 111 (38-126) U/L Total Protein 7.2 (6.3-8.2) g/dL Albumin 3.5 (3.5-5.0) g/dL Globulin 3.7 (1.7-4.1) g/dL Albumin/Globulin Ratio 0.9 L (1.0-2.8) Discharge Plan Departure Patient Disposition: Home Clinical Impression: COVID-19 Pneumonia Qualifiers: Pneumonia type: due to COVID-19 virus Qualified Code(s): U07.1 - COVID-19 Instructions: Pneumonia-Adult, DI for COVID-19 (Suspected or Confirmed ) Activity Restrictions/Additional Instructions: *You have been diagnosed with covid pneumonia. Please do not take the antibiotic, you do not need albuterol today and it won't be helpful. Please go to the pharmacy, your prescription should be ready, I am glad that your feeling better. Please let us know how you do, your symptoms should start to get better over the next few days. You have difficulty breathing, shortness of breath, wheezing, are feeling very ill, please return to the emergency department for another evaluation. I am glad that you came in, I hope feeling better, rest better at home now. *What to do: *Please continue to take your regular medications as directed. [ x] New medication prescriptions sent to your pharmacy: [ [facility]] [ ] New medication written as a paper prescription [ ] No new medications given *Please follow up with your primary care provider in 2-3 days, call for an appointment. Let them know you were seen in the Emergency Department and that we asked that you be seen for follow-up. We will electronically transmit a record of today's note if your PCP is in our system *If you do not have a primary care provider please contact [phone] to establish care with one of [facility] primary care providers. *Return to Emergency Department if you should have any new, worsening or concerning symptoms, such as [fever greater than 101F, chills, worsening pain, persistent vomiting or other bothersome symptoms] Prescriptions: New methocarbamol 500 mg tablet 500 mg PO TID PRN (Reason: muscle aches) Qty: 14 0RF Paxlovid (EUA) 150 mg x 2- 100 mg tablet See Rx Instructions .ROUTE .COMPLEX Qty: 30 0RF Rx Instructions: orally per package directions No Action dextroamphetamine-amphetamine [Adderall] 20 mg tablet 20 mg PO BID 0RF Label Comments: Take 1 tablet by mouth twice a day cholecalciferol (vitamin D3) [Vitamin D3] 125 mcg (5,000 unit) Tablet 6,000 unit PO DAILY 0RF acetaminophen 325 mg Tablet 650 mg PO Q6HR PRN (Reason: Pain, Mild (1-3)) Qty: 30 0RF ibuprofen 600 mg Tablet 600 mg PO Q6HR PRN (Reason: Pain, Mild (1-3)) Qty: 30 0RF Referrals: Roberto Moran MD [Primary Care Provider] - <Lloyd Luong MD - Last Filed: 03/24/22 07:21> Cosign ED Attending Cosignature Attestation: I was immediately available in the department for consultation. This documentation has been reviewed and I agree with assessment and plan. Supervised by Lloyd Luong MD
[2022-03-20 13:17] LABS: Add Manual Diff / Slide Review NO; Basophils Absolute Auto 0 /uL (0-100); Basophils Percent Auto 0.2 % (0-2); Eosinophils Absolute Auto 0 /uL (0-450); Eosinophils Percent Auto 0.1 % (2-4); Hemoglobin 12.2 g/dL (12.0-16.0); Lymphocytes Absolute Auto 400 /uL (1100-4500); Lymphocytes Percent Auto 3.4 % (25-40); Mean Corpuscular HGB Conc 33.8 % (30-36); Mean Corpuscular Hemoglobin 29.6 PG (26-34); Mean Corpuscular Volume 87.8 fL (80-100); Monocytes Absolute Auto 200 /uL (0-900); Monocytes Percent Auto 2.3 % (3-14); Neutrophils Absolute Auto 10200 /uL (1500-7000); Platelet Count 252 X10^3/uL (150-400); Red Cell Distribution Width 13.8 % (11.6-14.8); White Blood Cell Count 10.9 X10^3/uL (4.5-11.0)
[2022-03-20 13:23] LABS: Alanine Aminotransferase 30 IU/L (<35); Albumin 3.5 g/dL (3.5-5.0); Albumin Globulin Ratio 0.9 (1.0-2.8); Alkaline Phosphatase 111 U/L (38-126); Aspartate Aminotransferase 30 IU/L (14-36); BUN Creatinine Ratio 14.9 (6-22); Bilirubin Total 0.5 mg/dL (0.2-1.3); Blood Urea Nitrogen 13 mg/dL (7-17); Calcium 8.9 mg/dL (8.4-10.2); Carbon Dioxide 27 mmol/L (22-32); Chloride 99 mmol/L (98-107); Estimated Glomerular Filt Rate > 60 mL/min (>60); Globulin 3.7 g/dL (1.7-4.1); Glucose 151 mg/dL (70-100); HEMOLYSIS < 15 (0-50); Potassium 3.2 mmol/L (3.4-5.1); Sodium 137 mmol/L (137-145); Total Protein 7.2 g/dL (6.3-8.2)
[2022-03-20] MEDS: POTASSIUM CHLORIDE 20 MEQ/15 ML UDC 40 MEQ PO (13:46)
[2022-03-20] MEDS: PANTOPRAZOLE 40 MG VIAL 20 MG IV (13:46)
== END 2022-03-20 14:10 | disposition home or self-care (01) ==
PROVIDERS: Emergency Provider Nurse Practitioner Critical Care Medicine; PCP Family Medicine
DX: U07.1 COVID-19 (principal); J12.82 Pneumonia due to coronavirus disease 2019; E86.0 Dehydration; Z87.891 Personal history of nicotine dependence
CPT/HCPCS: 36415; 71045; 80053; 83735; 85025; 96361; 96374; 96375; 99284; C9113; J1200; J1885; J2405

== ENCOUNTER 2022-03-22 05:46 | Inpatient (IN) | payer OTHER, MEDICAID, SELFPAY ==
[2022-03-22] VITALS (40 sets, daily range): BP systolic 80–156; BP diastolic 43–82; PULSE 91–154; RESP 2–52; TEMP 36.8–39.2; O2SAT 74–100; BMI 26.4
--- NOTE | 2022-03-22 05:50 | ED_ITS ---
HPI - SOB/Dyspnea <Ac Gupta DO - Last Filed: 03/22/22 23:07> General Chief Complaint: Shortness of Breath/Dyspnea Stated Complaint: sob/covid+ Time Seen by Provider: 03/22/22 05:50 History of Present Illness HPI Narrative: 31-year-old female former smoker with history of Albert's thyroiditis and known COVID pneumonia presents with family in the chief complaint of significant worsening of symptoms over the day. She has been dealing with fevers as high as 103, nasal congestion, sore throat and a dry hacking cough over the past few days and was initially diagnosed last Wednesday. Today's day 6 or 7, she was seen and evaluated yesterday in our emergency department and discharged. She is profoundly short of breath and states oxygen levels at home were in the 70s. Related Data Home Medications Medication Instructions Recorded Confirmed cholecalciferol (vitamin D3) 125 6,000 unit PO DAILY 03/22/22 03/22/22 mcg (5,000 unit) tablet (Vitamin D3) dextroamphetamine-amphetamine 20 20 mg PO BID 03/22/22 03/22/22 mg tablet (Adderall) Previous Rx's Medication Instructions Recorded acetaminophen 325 mg tablet 650 mg PO Q6HR PRN #30 tab 03/08/19 ibuprofen 600 mg tablet 600 mg PO Q6HR PRN #30 tab 03/08/19 methocarbamol 500 mg tablet 500 mg PO TID PRN #14 tab 03/20/22 nirmatrelvir 150 mg x 2-ritonavir See Rx Instructions .ROUTE 03/20/22 100 mg tablet (EUA) (Paxlovid .COMPLEX #30 tab (EUA)) Allergies Allergy/AdvReac Type Severity Reaction Status Date / Time No Known Drug Allergies Allergy Verified 07/16/18 13:26 Review of Systems <Ac Gupta DO - Last Filed: 03/22/22 23:07> Review of Systems Narrative: GENERAL: See HPI HEENT: See HPI RESPIRATORY: See HPI CARDIOVASCULAR: Denies chest pain, palpitations, orthopnea, edema, GASTROINTESTINAL: Denies nausea, vomiting, abdominal pain, diarrhea, constipation, melena. : Denies dysuria, frequency, incontinence, hematuria, urinary retention. MUSCULOSKELETAL: denies weakness, joint pain, or bony pain SKIN: Denies rash, skin lesions, or other NEUROLOGIC: Denies weakness, headache, numbness, change in speech, confusion, seizures, incoordination. PSYCHIATRIC: No concerning psychosocial issues. 12 point review of systems is negative except for those stated above Patient History <Ac Gupta DO - Last Filed: 03/22/22 23:07> Medical History Chronic pelvic pain in female Hx of ovarian cyst Irritable bowel syndrome (IBS) Surgical History History of tonsillectomy S/P tonsillectomy Family History Grandfather No problems noted. Grandmother Lung cancer Grandmother No problems noted. Brother No problems noted. Social History household members: significant other and children Smoking Status: Former smoker Smoking Status: Former smoker Substance Use Type: does not use Exam <Ac Gupta DO - Last Filed: 03/22/22 23:07> Narrative Exam Narrative: GENERAL: [31] year old patient appears stated age. Patient in significant distress, tachypneic, diaphoretic and hypoxemic, difficulty ambulating, confused and slightly altered HEAD: Atraumatic. Normocephalic. EYES: Pupils equal round and reactive. Extraocular motions intact. No scleral icterus. No injection or drainage. ENT: Nose without bleeding, purulent drainage. Throat without erythema, tonsillar hypertrophy or exudate. Airway patent. NECK: Trachea midline. Non tender CARDIOVASCULAR: Regular rate and rhythm without murmurs, gallops, or rubs. RESPIRATORY: Clear to auscultation. Breath sounds equal bilaterally. No wheezes, rales, or rhonchi. GASTROINTESTINAL: Abdomen soft, non-tender, nondistended. EXTREMITIES: No edema or joint tenderness. BACK: Nontender without deformity or crepitance. No flank tenderness. NEURO: AOx3. SKIN: No rash or erythema of visible areas Initial Vital Signs Initial Vital Signs: Vital Signs Temperature 101.5 F H 03/22/22 05:55 Pulse Rate 123 H 03/22/22 05:55 Respiratory Rate 52 H 03/22/22 05:55 Blood Pressure 117/59 L 03/22/22 05:55 Pulse Oximetry 74 L 03/22/22 05:55 <Kike Velazquez DO - Last Filed: 03/22/22 07:57> Initial Vital Signs Initial Vital Signs: Vital Signs Temperature 101.5 F H 03/22/22 05:55 Pulse Rate 123 H 03/22/22 05:55 Respiratory Rate 52 H 03/22/22 05:55 Blood Pressure 117/59 L 03/22/22 05:55 Pulse Oximetry 74 L 03/22/22 05:55 Course <Ac Gupta DO - Last Filed: 03/22/22 23:07> Orders Ordered: Discontinued Medications Acetaminophen (Acetaminophen 325 Mg Tablet) 650 mg PO Q6HR [facility] Last Admin: 03/22/22 17:50 Dose: Not Given Documented by: Admin: 03/22/22 12:00 Dose: Not Given Documented by: DASH Acetaminophen (Acetaminophen 650 Mg Supp) 650 mg TX NOW ONE Stop: 03/22/22 13:10 Last Admin: 03/22/22 13:20 Dose: 650 mg Documented by: MICHELINE Dexamethasone (Dexamethasone 10 Mg/Ml Vial) 6 mg IV NOW ONE Stop: 03/22/22 05:52 Last Admin: 03/22/22 06:04 Dose: 6 mg Documented by: MICHELLE Dexamethasone (Dexamethasone 10 Mg/Ml Vial) 6 mg IV DAILY [facility] Enoxaparin Sodium (Enoxaparin 40 Mg/0.4 Ml Syringe) 40 mg SUBCUT DAILY [facility] Last Admin: 03/22/22 11:07 Dose: 40 mg Documented by: DASH Remdesivir 200 mg/ Sodium (Chloride) 250 mls @ 250 mls/hr IV NOW ONE Stop: 03/22/22 06:50 Last Infusion: 03/22/22 09:28 Dose: 0 mls/hr Documented by: Admin: 03/22/22 06:24 Dose: 250 mls/hr Documented by: JACKELIN Piperacillin Sod/Tazobactam (Sod 4.5 gm/ Sodium Chloride) 100 mls @ 200 mls/hr IV NOW ONE Stop: 03/22/22 06:51 Last Admin: 03/22/22 09:28 Dose: Not Given Documented by: MICHELINE Levofloxacin (Levaquin) 750 mg in 150 mls @ 100 mls/hr IV NOW ONE Stop: 03/22/22 09:20 Last Admin: 03/22/22 08:05 Dose: 100 mls/hr Documented by: MICHEL Dextrose/Sodium Chloride (Dextrose 5%-0.45% Ns) 1,000 mls @ 100 mls/hr IV CONT [facility] Last Admin: 03/22/22 11:08 Dose: 100 mls/hr Documented by: DASH Remdesivir 100 mg/ Sodium (Chloride) 250 mls @ 250 mls/hr IV DAILY [facility] Stop: 03/26/22 09:59 Propofol (Propofol) 1,000 mg in 100 mls @ 2.223 mls/hr IV TITRATE [facility]; Protocol Last Admin: 03/22/22 19:37 Dose: 20 mcg/kg/min, 8.892 mls/hr Documented by: Titration: 03/22/22 19:37 Dose: 20 mcg/kg/min, 8.892 mls/hr Documented by: Admin: 03/22/22 17:34 Dose: 20 mcg/kg/min, 8.892 mls/hr Documented by: Titration: 03/22/22 17:34 Dose: 20 mcg/kg/min, 8.892 mls/hr Documented by: Titration: 03/22/22 16:29 Dose: 20 mcg/kg/min, 8.892 mls/hr Documented by: Admin: 03/22/22 12:30 Dose: 5 mcg/kg/min, 2.223 mls/hr Documented by: DASH Fentanyl 1,000 mcg/ Dextrose 250 mls @ 12.968 mls/hr IV TITRATE JOANN; Protocol Last Titration: 03/22/22 16:29 Dose: 2 mcg/kg/hr, 37.05 mls/hr Documented by: Admin: 03/22/22 12:40 Dose: 0.7 mcg/kg/hr, 12.968 mls/hr Documented by: DASH dexmedeTOMIDine in 0.9 % NaCL (Precedex) 400 mcg in 100 mls @ 3.705 mls/hr IV TITRATE [facility]; Protocol Last Admin: 03/22/22 19:38 Dose: 0.8 mcg/kg/hr, 14.82 mls/hr Documented by: Titration: 03/22/22 19:38 Dose: 0.8 mcg/kg/hr, 14.82 mls/hr Documented by: Titration: 03/22/22 18:19 Dose: 0.8 mcg/kg/hr, 14.82 mls/hr Documented by: Titration: 03/22/22 16:29 Dose: 0.6 mcg/kg/hr, 11.115 mls/hr Documented by: Admin: 03/22/22 14:41 Dose: 0.2 mcg/kg/hr, 3.705 mls/hr Documented by: MICHELINE Cefepime HCl 2 gm/ Sodium (Chloride) 100 mls @ 200 mls/hr IV Q12H [facility] Last Infusion: 03/22/22 18:00 Dose: 0 mls/hr Documented by: Admin: 03/22/22 17:30 Dose: 200 mls/hr Documented by: DASH Vancomycin HCl (Vancomycin) 1,250 mg in 250 mls @ 250 mls/hr IV NOW ONE Stop: 03/22/22 16:59 Last Admin: 03/22/22 17:32 Dose: 250 mls/hr Documented by: DASH Vancomycin HCl (Vancomycin) 1,000 mg in 200 mls @ 200 mls/hr IV Q8H [facility] Lorazepam (Lorazepam 2 Mg/Ml Inj) 2 mg IV NOW ONE Stop: 03/22/22 14:36 Last Admin: 03/22/22 16:24 Dose: Not Given Documented by: DASH Methocarbamol (Methocarbamol 500 Mg Tablet) 500 mg PO TID PRN PRN Reason: muscle aches Midazolam HCl (Midazolam 2 Mg/2 Ml Vial) 2 mg IV NOW ONE Stop: 03/22/22 13:55 Last Admin: 03/22/22 14:08 Dose: 2 mg Documented by: MICHELINE Midazolam HCl (Midazolam 2 Mg/2 Ml Vial) 2 mg IV NOW ONE Stop: 03/22/22 14:35 Last Admin: 03/22/22 16:26 Dose: Not Given Documented by: DASH Morphine Sulfate (Morphine 2 Mg/Ml Inj) 2 mg IV Q4H PRN PRN Reason: Breakthrough pain only (8-10) Last Admin: 03/22/22 11:08 Dose: 2 mg Documented by: DASH Dextroamphetamine- Amphetamine [ Adderall] 20 Mg Tablet 20 mg PO BID@0700,1400 [facility] Norepinephrine Bitartrate (Norepinephrine 4 Mg/4 Ml Vial) 0 mg IV TITRATE [facility]; Protocol Last Admin: 03/22/22 18:19 Dose: Not Given Documented by: DASH Pantoprazole Sodium (Pantoprazole 40 Mg Vial) 40 mg IV DAILY [facility] Last Admin: 03/22/22 11:07 Dose: 40 mg Documented by: DASH Vital Signs Vital signs: Vital Signs - 8 hr 03/22/22 05:55 03/22/22 05:59 03/22/22 06:00 Temperature 101.5 F H Pulse Rate 123 H 119 H 119 H Respiratory Rate 52 H Blood Pressure 117/59 L 117/59 L Pulse Oximetry 74 L 92 92 03/22/22 06:30 03/22/22 06:48 03/22/22 07:00 Temperature Pulse Rate 118 H 114 H 119 H Respiratory Rate 45 H 35 H 42 H Blood Pressure 117/69 119/68 Pulse Oximetry 100 100 94 03/22/22 07:02 Temperature Pulse Rate 114 H Respiratory Rate 45 H Blood Pressure 123/67 Pulse Oximetry 100 <Kike Velazquez DO - Last Filed: 03/22/22 07:57> Orders Ordered: Discontinued Medications Acetaminophen (Acetaminophen 325 Mg Tablet) 650 mg PO Q6HR [facility] Last Admin: 03/22/22 17:50 Dose: Not Given Documented by: Admin: 03/22/22 12:00 Dose: Not Given Documented by: DASH Acetaminophen (Acetaminophen 650 Mg Supp) 650 mg TX NOW ONE Stop: 03/22/22 13:10 Last Admin: 03/22/22 13:20 Dose: 650 mg Documented by: MICHELINE Dexamethasone (Dexamethasone 10 Mg/Ml Vial) 6 mg IV NOW ONE Stop: 03/22/22 05:52 Last Admin: 03/22/22 06:04 Dose: 6 mg Documented by: MICHELLE Dexamethasone (Dexamethasone 10 Mg/Ml Vial) 6 mg IV DAILY [facility] Enoxaparin Sodium (Enoxaparin 40 Mg/0.4 Ml Syringe) 40 mg SUBCUT DAILY [facility] Last Admin: 03/22/22 11:07 Dose: 40 mg Documented by: DASH Remdesivir 200 mg/ Sodium (Chloride) 250 mls @ 250 mls/hr IV NOW ONE Stop: 03/22/22 06:50 Last Infusion: 03/22/22 09:28 Dose: 0 mls/hr Documented by: Admin: 03/22/22 06:24 Dose: 250 mls/hr Documented by: JACKELIN Piperacillin Sod/Tazobactam (Sod 4.5 gm/ Sodium Chloride) 100 mls @ 200 mls/hr IV NOW ONE Stop: 03/22/22 06:51 Last Admin: 03/22/22 09:28 Dose: Not Given Documented by: MICHELINE Levofloxacin (Levaquin) 750 mg in 150 mls @ 100 mls/hr IV NOW ONE Stop: 03/22/22 09:20 Last Admin: 03/22/22 08:05 Dose: 100 mls/hr Documented by: MICHEL Dextrose/Sodium Chloride (Dextrose 5%-0.45% Ns) 1,000 mls @ 100 mls/hr IV CONT [facility] Last Admin: 03/22/22 11:08 Dose: 100 mls/hr Documented by: DASH Remdesivir 100 mg/ Sodium (Chloride) 250 mls @ 250 mls/hr IV DAILY [facility] Stop: 03/26/22 09:59 Propofol (Propofol) 1,000 mg in 100 mls @ 2.223 mls/hr IV TITRATE [facility]; Protocol Last Admin: 03/22/22 19:37 Dose: 20 mcg/kg/min, 8.892 mls/hr Documented by: Titration: 03/22/22 19:37 Dose: 20 mcg/kg/min, 8.892 mls/hr Documented by: Admin: 03/22/22 17:34 Dose: 20 mcg/kg/min, 8.892 mls/hr Documented by: Titration: 03/22/22 17:34 Dose: 20 mcg/kg/min, 8.892 mls/hr Documented by: Titration: 03/22/22 16:29 Dose: 20 mcg/kg/min, 8.892 mls/hr Documented by: Admin: 03/22/22 12:30 Dose: 5 mcg/kg/min, 2.223 mls/hr Documented by: DASH Fentanyl 1,000 mcg/ Dextrose 250 mls @ 12.968 mls/hr IV TITRATE [facility]ANN; Protocol Last Titration: 03/22/22 16:29 Dose: 2 mcg/kg/hr, 37.05 mls/hr Documented by: Admin: 03/22/22 12:40 Dose: 0.7 mcg/kg/hr, 12.968 mls/hr Documented by: DASH dexmedeTOMIDine in 0.9 % NaCL (Precedex) 400 mcg in 100 mls @ 3.705 mls/hr IV TITRATE [facility]; Protocol Last Admin: 03/22/22 19:38 Dose: 0.8 mcg/kg/hr, 14.82 mls/hr Documented by: Titration: 03/22/22 19:38 Dose: 0.8 mcg/kg/hr, 14.82 mls/hr Documented by: Titration: 03/22/22 18:19 Dose: 0.8 mcg/kg/hr, 14.82 mls/hr Documented by: Titration: 03/22/22 16:29 Dose: 0.6 mcg/kg/hr, 11.115 mls/hr Documented by: Admin: 03/22/22 14:41 Dose: 0.2 mcg/kg/hr, 3.705 mls/hr Documented by: MICHELINE Cefepime HCl 2 gm/ Sodium (Chloride) 100 mls @ 200 mls/hr IV Q12H [facility] Last Infusion: 03/22/22 18:00 Dose: 0 mls/hr Documented by: Admin: 03/22/22 17:30 Dose: 200 mls/hr Documented by: DASH Vancomycin HCl (Vancomycin) 1,250 mg in 250 mls @ 250 mls/hr IV NOW ONE Stop: 03/22/22 16:59 Last Admin: 03/22/22 17:32 Dose: 250 mls/hr Documented by: DASH Vancomycin HCl (Vancomycin) 1,000 mg in 200 mls @ 200 mls/hr IV Q8H [facility] Lorazepam (Lorazepam 2 Mg/Ml Inj) 2 mg IV NOW ONE Stop: 03/22/22 14:36 Last Admin: 03/22/22 16:24 Dose: Not Given Documented by: DASH Methocarbamol (Methocarbamol 500 Mg Tablet) 500 mg PO TID PRN PRN Reason: muscle aches Midazolam HCl (Midazolam 2 Mg/2 Ml Vial) 2 mg IV NOW ONE Stop: 03/22/22 13:55 Last Admin: 03/22/22 14:08 Dose: 2 mg Documented by: MICHELINE Midazolam HCl (Midazolam 2 Mg/2 Ml Vial) 2 mg IV NOW ONE Stop: 03/22/22 14:35 Last Admin: 03/22/22 16:26 Dose: Not Given Documented by: DASH Morphine Sulfate (Morphine 2 Mg/Ml Inj) 2 mg IV Q4H PRN PRN Reason: Breakthrough pain only (8-10) Last Admin: 03/22/22 11:08 Dose: 2 mg Documented by: DASH Dextroamphetamine- Amphetamine [ Adderall] 20 Mg Tablet 20 mg PO BID@0700,1400 [facility] Norepinephrine Bitartrate (Norepinephrine 4 Mg/4 Ml Vial) 0 mg IV TITRATE [facility]; Protocol Last Admin: 03/22/22 18:19 Dose: Not Given Documented by: DASH Pantoprazole Sodium (Pantoprazole 40 Mg Vial) 40 mg IV DAILY [facility] Last Admin: 03/22/22 11:07 Dose: 40 mg Documented by: DASH Vital Signs Vital signs: Vital Signs - 8 hr 03/22/22 05:55 03/22/22 05:59 03/22/22 06:00 Temperature 101.5 F H Pulse Rate 123 H 119 H 119 H Respiratory Rate 52 H Blood Pressure 117/59 L 117/59 L Pulse Oximetry 74 L 92 92 03/22/22 06:30 03/22/22 06:48 03/22/22 07:00 Temperature Pulse Rate 118 H 114 H 119 H Respiratory Rate 45 H 35 H 42 H Blood Pressure 117/69 119/68 Pulse Oximetry 100 100 94 03/22/22 07:02 Temperature Pulse Rate 114 H Respiratory Rate 45 H Blood Pressure 123/67 Pulse Oximetry 100 MDM - SOB/Dyspnea <Ac Gupta DO - Last Filed: 03/22/22 23:07> Lab Data Result diagrams: 03/22/22 05:55 03/22/22 05:55 Labs: Lab Results 03/22/22 03/22/22 03/22/22 Range/Units 05:55 05:55 05:55 WBC 13.3 H (4.5-11.0) X10^3/uL RBC 4.14 (4.0-5.2) X10^6/uL Hgb 12.2 (12.0-16.0) g/dL Hct 36.0 (36-46) % MCV 87.0 (80-100) fL MCH 29.5 (26-34) PG MCHC 33.8 (30-36) % RDW 13.5 (11.6-14.8) % Plt Count 275 (150-400) X10^3/uL Neut % (Auto) 95.2 H (50-75) % Lymph % (Auto) 3.3 L (25-40) % [place] % (Auto) 0.9 L (3-14) % Eos % (Auto) 0.4 L (2-4) % Baso % (Auto) 0.2 (0-2) % Neut # (Auto) 31642 H (3724-5343) /uL Lymph # (Auto) 400 L (9947-2317) /uL [place] # (Auto) 100 (0-900) /uL Eos # (Auto) 0 (0-450) /uL Baso # (Auto) 0 (0-100) /uL D-Dimer 2959 H (<230) ng/mL ABG pH (7.35-7.45) ABG pCO2 (35-45) mmHg ABG pO2 (80-100) mmHg ABG HCO3 (22-26) mmol/L ABG Total CO2 (21-31) mmol/L ABG O2 Saturation (95-100) % ABG Base Excess (-2-2) mmol/L FiO2 Sodium (137-145) mmol/L Potassium (3.4-5.1) mmol/L Chloride (98-107) mmol/L Carbon Dioxide (22-32) mmol/L BUN (7-17) mg/dL Creatinine (0.52-1.04) mg/dL Estimated GFR (>60) mL/min BUN/Creatinine Ratio (6-22) Glucose (70-100) mg/dL Lactate (0.7-2.1) mmol/L Calcium (8.4-10.2) mg/dL Ferritin (6-137) ng/mL Total Bilirubin (0.2-1.3) mg/dL AST (14-36) IU/L ALT (<35) IU/L Alkaline Phosphatase (38-126) U/L Lactate Dehydrogenase (313-618) U/L Total Creatine Kinase (30-135) U/L CK-MB (CK-2) CK-MB (CK-2) Rel Index Troponin I (0.01-0.034) ng/mL C-Reactive Protein (<1.0) mg/dL NT-Pro-B Natriuret Pep (<125) pg/mL Total Protein (6.3-8.2) g/dL Albumin (3.5-5.0) g/dL Globulin (1.7-4.1) g/dL Albumin/Globulin Ratio (1.0-2.8) Procalcitonin 3.83 H (<0.5) ng/mL SARS-CoV-2 (PCR) (Negative) 03/22/22 03/22/22 03/22/22 Range/Units 05:55 05:55 06:10 WBC (4.5-11.0) X10^3/uL RBC (4.0-5.2) X10^6/uL Hgb (12.0-16.0) g/dL Hct (36-46) % MCV (80-100) fL MCH (26-34) PG MCHC (30-36) % RDW (11.6-14.8) % Plt Count (150-400) X10^3/uL Neut % (Auto) (50-75) % Lymph % (Auto) (25-40) % [place] % (Auto) (3-14) % Eos % (Auto) (2-4) % Baso % (Auto) (0-2) % Neut # (Auto) (7344-9782) /uL Lymph # (Auto) (0144-1750) /uL [place] # (Auto) (0-900) /uL Eos # (Auto) (0-450) /uL Baso # (Auto) (0-100) /uL D-Dimer (<230) ng/mL ABG pH (7.35-7.45) ABG pCO2 (35-45) mmHg ABG pO2 (80-100) mmHg ABG HCO3 (22-26) mmol/L ABG Total CO2 (21-31) mmol/L ABG O2 Saturation (95-100) % ABG Base Excess (-2-2) mmol/L FiO2 Sodium 137 (137-145) mmol/L Potassium 3.7 (3.4-5.1) mmol/L Chloride 103 (98-107) mmol/L Carbon Dioxide 24 (22-32) mmol/L BUN 14 (7-17) mg/dL Creatinine 0.83 (0.52-1.04) mg/dL Estimated GFR > 60 (>60) mL/min BUN/Creatinine Ratio 16.9 (6-22) Glucose 101 H (70-100) mg/dL Lactate 2.5 H (0.7-2.1) mmol/L Calcium 8.6 (8.4-10.2) mg/dL Ferritin 1090 H (6-137) ng/mL Total Bilirubin 0.7 (0.2-1.3) mg/dL AST 48 H (14-36) IU/L ALT 34 (<35) IU/L Alkaline Phosphatase 150 H (38-126) U/L Lactate Dehydrogenase 555 (313-618) U/L Total Creatine Kinase < 20 L (30-135) U/L CK-MB (CK-2) TNP CK-MB (CK-2) Rel Index TNP Troponin I < 0.012 (0.01-0.034) ng/mL C-Reactive Protein 68.6 H (<1.0) mg/dL NT-Pro-B Natriuret Pep 418 H (<125) pg/mL Total Protein 6.7 (6.3-8.2) g/dL Albumin 3.2 L (3.5-5.0) g/dL Globulin 3.5 (1.7-4.1) g/dL Albumin/Globulin Ratio 0.9 L (1.0-2.8) Procalcitonin (<0.5) ng/mL SARS-CoV-2 (PCR) Positive H (Negative) 03/22/22 Range/Units 06:13 WBC (4.5-11.0) X10^3/uL RBC (4.0-5.2) X10^6/uL Hgb (12.0-16.0) g/dL Hct (36-46) % MCV (80-100) fL MCH (26-34) PG MCHC (30-36) % RDW (11.6-14.8) % Plt Count (150-400) X10^3/uL Neut % (Auto) (50-75) % Lymph % (Auto) (25-40) % [place] % (Auto) (3-14) % Eos % (Auto) (2-4) % Baso % (Auto) (0-2) % Neut # (Auto) (0958-3231) /uL Lymph # (Auto) (3963-0541) /uL [place] # (Auto) (0-900) /uL Eos # (Auto) (0-450) /uL Baso # (Auto) (0-100) /uL D-Dimer (<230) ng/mL ABG pH 7.48 H (7.35-7.45) ABG pCO2 31.3 L (35-45) mmHg ABG pO2 112 H (80-100) mmHg ABG HCO3 23 (22-26) mmol/L ABG Total CO2 24 (21-31) mmol/L ABG O2 Saturation 99 (95-100) % ABG Base Excess -1.0 (-2-2) mmol/L FiO2 100 Sodium (137-145) mmol/L Potassium (3.4-5.1) mmol/L Chloride (98-107) mmol/L Carbon Dioxide (22-32) mmol/L BUN (7-17) mg/dL Creatinine (0.52-1.04) mg/dL Estimated GFR (>60) mL/min BUN/Creatinine Ratio (6-22) Glucose (70-100) mg/dL Lactate (0.7-2.1) mmol/L Calcium (8.4-10.2) mg/dL Ferritin (6-137) ng/mL Total Bilirubin (0.2-1.3) mg/dL AST (14-36) IU/L ALT (<35) IU/L Alkaline Phosphatase (38-126) U/L Lactate Dehydrogenase (313-618) U/L Total Creatine Kinase (30-135) U/L CK-MB (CK-2) CK-MB (CK-2) Rel Index Troponin I (0.01-0.034) ng/mL C-Reactive Protein (<1.0) mg/dL NT-Pro-B Natriuret Pep (<125) pg/mL Total Protein (6.3-8.2) g/dL Albumin (3.5-5.0) g/dL Globulin (1.7-4.1) g/dL Albumin/Globulin Ratio (1.0-2.8) Procalcitonin (<0.5) ng/mL SARS-CoV-2 (PCR) (Negative) <Kike Velazquez, - Last Filed: 03/22/22 07:57> Lab Data Labs: Lab Results 03/22/22 03/22/22 03/22/22 Range/Units 05:55 05:55 05:55 WBC 13.3 H (4.5-11.0) X10^3/uL RBC 4.14 (4.0-5.2) X10^6/uL Hgb 12.2 (12.0-16.0) g/dL Hct 36.0 (36-46) % MCV 87.0 (80-100) fL MCH 29.5 (26-34) PG MCHC 33.8 (30-36) % RDW 13.5 (11.6-14.8) % Plt Count 275 (150-400) X10^3/uL Neut % (Auto) 95.2 H (50-75) % Lymph % (Auto) 3.3 L (25-40) % [place] % (Auto) 0.9 L (3-14) % Eos % (Auto) 0.4 L (2-4) % Baso % (Auto) 0.2 (0-2) % Neut # (Auto) 25660 H (4613-5715) /uL Lymph # (Auto) 400 L (9095-5791) /uL [place] # (Auto) 100 (0-900) /uL Eos # (Auto) 0 (0-450) /uL Baso # (Auto) 0 (0-100) /uL D-Dimer 2959 H (<230) ng/mL ABG pH (7.35-7.45) ABG pCO2 (35-45) mmHg ABG pO2 (80-100) mmHg ABG HCO3 (22-26) mmol/L ABG Total CO2 (21-31) mmol/L ABG O2 Saturation (95-100) % ABG Base Excess (-2-2) mmol/L FiO2 Sodium (137-145) mmol/L Potassium (3.4-5.1) mmol/L Chloride (98-107) mmol/L Carbon Dioxide (22-32) mmol/L BUN (7-17) mg/dL Creatinine (0.52-1.04) mg/dL Estimated GFR (>60) mL/min BUN/Creatinine Ratio (6-22) Glucose (70-100) mg/dL Lactate (0.7-2.1) mmol/L Calcium (8.4-10.2) mg/dL Ferritin (6-137) ng/mL Total Bilirubin (0.2-1.3) mg/dL AST (14-36) IU/L ALT (<35) IU/L Alkaline Phosphatase (38-126) U/L Lactate Dehydrogenase (313-618) U/L Total Creatine Kinase (30-135) U/L CK-MB (CK-2) CK-MB (CK-2) Rel Index Troponin I (0.01-0.034) ng/mL C-Reactive Protein (<1.0) mg/dL NT-Pro-B Natriuret Pep (<125) pg/mL Total Protein (6.3-8.2) g/dL Albumin (3.5-5.0) g/dL Globulin (1.7-4.1) g/dL Albumin/Globulin Ratio (1.0-2.8) Procalcitonin 3.83 H (<0.5) ng/mL SARS-CoV-2 (PCR) (Negative) 03/22/22 03/22/22 03/22/22 Range/Units 05:55 05:55 06:10 WBC (4.5-11.0) X10^3/uL RBC (4.0-5.2) X10^6/uL Hgb (12.0-16.0) g/dL Hct (36-46) % MCV (80-100) fL MCH (26-34) PG MCHC (30-36) % RDW (11.6-14.8) % Plt Count (150-400) X10^3/uL Neut % (Auto) (50-75) % Lymph % (Auto) (25-40) % [place] % (Auto) (3-14) % Eos % (Auto) (2-4) % Baso % (Auto) (0-2) % Neut # (Auto) (9033-2105) /uL Lymph # (Auto) (8358-1200) /uL [place] # (Auto) (0-900) /uL Eos # (Auto) (0-450) /uL Baso # (Auto) (0-100) /uL D-Dimer (<230) ng/mL ABG pH (7.35-7.45) ABG pCO2 (35-45) mmHg ABG pO2 (80-100) mmHg ABG HCO3 (22-26) mmol/L ABG Total CO2 (21-31) mmol/L ABG O2 Saturation (95-100) % ABG Base Excess (-2-2) mmol/L FiO2 Sodium 137 (137-145) mmol/L Potassium 3.7 (3.4-5.1) mmol/L Chloride 103 (98-107) mmol/L Carbon Dioxide 24 (22-32) mmol/L BUN 14 (7-17) mg/dL Creatinine 0.83 (0.52-1.04) mg/dL Estimated GFR > 60 (>60) mL/min BUN/Creatinine Ratio 16.9 (6-22) Glucose 101 H (70-100) mg/dL Lactate 2.5 H (0.7-2.1) mmol/L Calcium 8.6 (8.4-10.2) mg/dL Ferritin 1090 H (6-137) ng/mL Total Bilirubin 0.7 (0.2-1.3) mg/dL AST 48 H (14-36) IU/L ALT 34 (<35) IU/L Alkaline Phosphatase 150 H (38-126) U/L Lactate Dehydrogenase 555 (313-618) U/L Total Creatine Kinase < 20 L (30-135) U/L CK-MB (CK-2) TNP CK-MB (CK-2) Rel Index TNP Troponin I < 0.012 (0.01-0.034) ng/mL C-Reactive Protein 68.6 H (<1.0) mg/dL NT-Pro-B Natriuret Pep 418 H (<125) pg/mL Total Protein 6.7 (6.3-8.2) g/dL Albumin 3.2 L (3.5-5.0) g/dL Globulin 3.5 (1.7-4.1) g/dL Albumin/Globulin Ratio 0.9 L (1.0-2.8) Procalcitonin (<0.5) ng/mL SARS-CoV-2 (PCR) Positive H (Negative) 03/22/22 Range/Units 06:13 WBC (4.5-11.0) X10^3/uL RBC (4.0-5.2) X10^6/uL Hgb (12.0-16.0) g/dL Hct (36-46) % MCV (80-100) fL MCH (26-34) PG MCHC (30-36) % RDW (11.6-14.8) % Plt Count (150-400) X10^3/uL Neut % (Auto) (50-75) % Lymph % (Auto) (25-40) % [place] % (Auto) (3-14) % Eos % (Auto) (2-4) % Baso % (Auto) (0-2) % Neut # (Auto) (4903-1545) /uL Lymph # (Auto) (2567-7369) /uL [place] # (Auto) (0-900) /uL Eos # (Auto) (0-450) /uL Baso # (Auto) (0-100) /uL D-Dimer (<230) ng/mL ABG pH 7.48 H (7.35-7.45) ABG pCO2 31.3 L (35-45) mmHg ABG pO2 112 H (80-100) mmHg ABG HCO3 23 (22-26) mmol/L ABG Total CO2 24 (21-31) mmol/L ABG O2 Saturation 99 (95-100) % ABG Base Excess -1.0 (-2-2) mmol/L FiO2 100 Sodium (137-145) mmol/L Potassium (3.4-5.1) mmol/L Chloride (98-107) mmol/L Carbon Dioxide (22-32) mmol/L BUN (7-17) mg/dL Creatinine (0.52-1.04) mg/dL Estimated GFR (>60) mL/min BUN/Creatinine Ratio (6-22) Glucose (70-100) mg/dL Lactate (0.7-2.1) mmol/L Calcium (8.4-10.2) mg/dL Ferritin (6-137) ng/mL Total Bilirubin (0.2-1.3) mg/dL AST (14-36) IU/L ALT (<35) IU/L Alkaline Phosphatase (38-126) U/L Lactate Dehydrogenase (313-618) U/L Total Creatine Kinase (30-135) U/L CK-MB (CK-2) CK-MB (CK-2) Rel Index Troponin I (0.01-0.034) ng/mL C-Reactive Protein (<1.0) mg/dL NT-Pro-B Natriuret Pep (<125) pg/mL Total Protein (6.3-8.2) g/dL Albumin (3.5-5.0) g/dL Globulin (1.7-4.1) g/dL Albumin/Globulin Ratio (1.0-2.8) Procalcitonin (<0.5) ng/mL SARS-CoV-2 (PCR) (Negative) Imaging Data CT scan - chest: Radiologist's Impression: [place] [id number] CT Scan Report Signed Patient: Ambreen Montague MR#: [id number] : 1990 Acct:[id number] Age/Sex: 31 / F Date of Service: 03/22/22 Loc: ED Accession Number: [id number] ?? Procedure: CT angio chest PE protocol Ordering Provider: Ac Gupta D.O. PROCEDURE:? CT ANGIO CHEST PE PROTOCOL ? INDICATIONS:? respiratory failure, COVID, Dimer well above expected with C ? TECHNIQUE:? After the administration of intravenous contrast, 2 mm thick sections acquired from the pulmonary apices to the posterior costophrenic angles.? 3-dimensional maximum intensity projection (MIP) coronal and sagittal reformats were then acquired through the thorax.? For radiation dose reduction, the following was used:? automated exposure control, adjustment of mA and/or kV according to patient size.? ? COMPARISON:? [facility], CT, CT ABDOMEN PELVIS WITH CONTRAST, 04/02/2018, 0:55.? [facility], CR, XR CHEST 1V, 03/22/2022, 6:22. ? FINDINGS:? Image quality:? Excellent.? ? Pulmonary arteries:? Pulmonary arteries are normal in size, and demonstrate no intraluminal filling defects to suggest central pulmonary embolism.? ? Lungs and pleura:? Profound bilateral alveolar-type infiltrates can be seen, right worse and more prominent inferiorly and laterally.? Air bronchograms can be seen. ? Mediastinum:? Heart size is normal, without pericardial effusion.? No mediastinal or hilar adenopathy.? Thoracic aorta is normal in caliber and enhancement.? Esophagus is normal in caliber, without hiatal hernia.? ? Bones and chest wall:? No suspicious bony lesions.? Ribs and thoracic spine appear intact throughout.? Thyroid gland demonstrates no significant abnormality.? No axillary or supraclavicular adenopathy.? ? Abdomen:? A region of increased enhancement can be seen involving the right posterior liver, as on series 5, image 118. This is similar to 2018. Incidental note is made of an accessory splenule along the posterior aspect of the primary spleen.? The visualized portions of the upper abdominal structures are otherwise unremarkable for imaging technique. ? ? IMPRESSION:? Negative for pulmonary embolism. ? Profound bilateral alveolar type infiltrates are seen.? These are much denser than normally seen in patients with COVID pneumonia.? Please consider superimposed bacterial infection other infiltrative process in this patient with a given history of known COVID infection. ? ? ? Incidental note is made of: Accessory splenule Stable area of increased enhancement along the posterior right liver, likely benign ? Dictated by: Darell Elder M.D. on 03/22/2022 at 6:23 ? ? Approved by: Darell Elder M.D. on 03/22/2022 at 6:30?? [facility] Narrative Medical decision making narrative: Dr velazquez: Received turned over. Reviewed patient's history physical exam. Patient CTA shows no signs of pulmonary embolism does have extensive bilateral pulmonary infiltrates. Will switch from Zosyn to Levaquin for concern of an overlying bacterial pneumonia. Patient has been improving. I discussed the case with Dr. Polk who is on-call for the patient's primary doctor who will admit for further evaluation and treatment. Discharge Plan Departure Patient Disposition: Admitted As Inpatient Clinical Impression: Pneumonia due to 2019 novel coronavirus, Hypoxia, Acute respiratory distress Admit Date/Time: 03/22/22 08:03 Admit Provider: Kenyetta Polk
--- NOTE | 2022-03-22 05:52 | DI.RAD.S_ITS ---
PROCEDURE: XR CHEST 1V INDICATIONS: flu-like symptoms TECHNIQUE: One view of the chest was acquired. COMPARISON: [facility], CT, CT ANGIO CHEST PE PROTOCOL, 03/22/2022, 6:58. [facility], CR, XR CHEST 2 VIEWS, 03/19/2022, 17:31. [facility], CR, XR CHEST 1V, 03/20/2022, 12:59. FINDINGS: Surgical changes and devices: None. Lungs and pleura: Bilateral alveolar infiltrates are seen, right worse than left, with air bronchograms faintly visible. These infiltrates are clearly worse on the recent prior radiographs. No pneumothorax or pleural effusions are seen. Mediastinum: Mediastinal contours appear normal. Heart size is normal. Bones and chest wall: No suspicious bony lesions. Overlying soft tissues appear unremarkable. IMPRESSION: Worsening bilateral alveolar infiltrates. Note: No significant discrepancy from the preliminary report. Dictated by: Darell Elder M.D. on 03/22/2022 at 6:31 Approved by: Darell Elder M.D. on 03/22/2022 at 6:32
[2022-03-22] MEDS: DEXAMETHASONE 10 MG/ML VIAL 6 MG IV (06:04)
[2022-03-22 06:15] LABS: Add Manual Diff / Slide Review NO; Basophils Absolute Auto 0 /uL (0-100); Basophils Percent Auto 0.2 % (0-2); Eosinophils Absolute Auto 0 /uL (0-450); Eosinophils Percent Auto 0.4 % (2-4); Hemoglobin 12.2 g/dL (12.0-16.0); Lymphocytes Absolute Auto 400 /uL (1100-4500); Lymphocytes Percent Auto 3.3 % (25-40); Mean Corpuscular HGB Conc 33.8 % (30-36); Mean Corpuscular Hemoglobin 29.5 PG (26-34); Monocytes Absolute Auto 100 /uL (0-900); Monocytes Percent Auto 0.9 % (3-14); Neutrophils Absolute Auto 12700 /uL (1500-7000); Neutrophils Percent Auto 95.2 % (50-75); Platelet Count 275 X10^3/uL (150-400); Red Blood Cell Count 4.14 X10^6/uL (4.0-5.2); Red Cell Distribution Width 13.5 % (11.6-14.8); White Blood Cell Count 13.3 X10^3/uL (4.5-11.0)
[2022-03-22 06:19] LABS: Lactate (Lactic Acid) 2.5 mmol/L (0.7-2.1)
[2022-03-22 06:20] LABS: Alanine Aminotransferase 34 IU/L (<35); Albumin 3.2 g/dL (3.5-5.0); Albumin Globulin Ratio 0.9 (1.0-2.8); Alkaline Phosphatase 150 U/L (38-126); Aspartate Aminotransferase 48 IU/L (14-36); BUN Creatinine Ratio 16.9 (6-22); Bilirubin Total 0.7 mg/dL (0.2-1.3); Blood Urea Nitrogen 14 mg/dL (7-17); Calcium 8.6 mg/dL (8.4-10.2); Carbon Dioxide 24 mmol/L (22-32); Chloride 103 mmol/L (98-107); Creatine Kinase < 20 U/L (30-135); Estimated Glomerular Filt Rate > 60 mL/min (>60); Globulin 3.5 g/dL (1.7-4.1); Glucose 101 mg/dL (70-100); HEMOLYSIS < 15 (0-50); Lactate Dehydrogenase 555 U/L (313-618); Potassium 3.7 mmol/L (3.4-5.1); Sodium 137 mmol/L (137-145); Total Protein 6.7 g/dL (6.3-8.2)
[2022-03-22 06:24] LABS: D Dimer 2959 ng/mL (<230)
[2022-03-22] MEDS: REMDESIVIR 200 MG in SODIUM CHLORIDE 0.9% 210 ML 250 ML IV (06:24)
[2022-03-22 06:28] LABS: HCO3 ABG 23 mmol/L (22-26); PCO2 ABG 31.3 mmHg (35-45); PO2 ABG 112 mmHg (80-100); TCO2 ABG 24 mmol/L (21-31); pH ABG 7.48 (7.35-7.45)
[2022-03-22 06:29] LABS: Fractionated Inspired Oxygen 100; Oxygen Saturation ABG 99 % (95-100)
--- NOTE | 2022-03-22 06:30 | DI.CT.S_ITS ---
PROCEDURE: CT ANGIO CHEST PE PROTOCOL INDICATIONS: respiratory failure, COVID, Dimer well above expected with C TECHNIQUE: After the administration of intravenous contrast, 2 mm thick sections acquired from the pulmonary apices to the posterior costophrenic angles. 3-dimensional maximum intensity projection (MIP) coronal and sagittal reformats were then acquired through the thorax. For radiation dose reduction, the following was used: automated exposure control, adjustment of mA and/or kV according to patient size. COMPARISON: [facility], CT, CT ABDOMEN PELVIS WITH CONTRAST, 04/02/2018, 0:55. [facility], CR, XR CHEST 1V, 03/22/2022, 6:22. FINDINGS: Image quality: Excellent. Pulmonary arteries: Pulmonary arteries are normal in size, and demonstrate no intraluminal filling defects to suggest central pulmonary embolism. Lungs and pleura: Profound bilateral alveolar-type infiltrates can be seen, right worse and more prominent inferiorly and laterally. Air bronchograms can be seen. Mediastinum: Heart size is normal, without pericardial effusion. No mediastinal or hilar adenopathy. Thoracic aorta is normal in caliber and enhancement. Esophagus is normal in caliber, without hiatal hernia. Bones and chest wall: No suspicious bony lesions. Ribs and thoracic spine appear intact throughout. Thyroid gland demonstrates no significant abnormality. No axillary or supraclavicular adenopathy. Abdomen: A region of increased enhancement can be seen involving the right posterior liver, as on series 5, image 118. This is similar to 2018. Incidental note is made of an accessory splenule along the posterior aspect of the primary spleen. The visualized portions of the upper abdominal structures are otherwise unremarkable for imaging technique. IMPRESSION: Negative for pulmonary embolism. Profound bilateral alveolar type infiltrates are seen. These are much denser than normally seen in patients with COVID pneumonia. Please consider superimposed bacterial infection other infiltrative process in this patient with a given history of known COVID infection. Incidental note is made of: Accessory splenule Stable area of increased enhancement along the posterior right liver, likely benign Dictated by: Darell Elder M.D. on 03/22/2022 at 6:23 Approved by: Darell Elder M.D. on 03/22/2022 at 6:30
[2022-03-22 06:35] LABS: Procalcitonin 3.83 ng/mL (<0.5)
[2022-03-22 06:49] LABS: C-Reactive Protein Quant 68.6 mg/dL (<1.0)
[2022-03-22 06:50] LABS: COVID19 -Nasal RAPID POSITIVE (Negative)
[2022-03-22 06:55] LABS: NT-proBNP (BNP-Adult 18+) 418 pg/mL (<125); Troponin I < 0.012 ng/mL (0.01-0.034)
[2022-03-22 07:36] LABS: Ferritin 1090 ng/mL (6-137)
[2022-03-22 08:02] LABS: Reflexed Lactate in 2 Hours Y
[2022-03-22] MEDS: levoFLOXacin 750 MG/150 ML PIGGYBACK 100 MG IV (08:05)
[2022-03-22 08:51] LABS: Lactate 2HR (Lactic Acid Rflx) 1.7 mmol/L (0.7-2.1)
--- NOTE | 2022-03-22 09:58 | P.HP_ITS ---
History of Present Illness History of Present Illness Date Patient Seen: 03/22/22 Time Patient Seen: 09:58 Chief complaint: sob/covid+ Narrative: 31-year-old female former smoker is admitted to the floor with COVID pneumonia suspected superimposed bacterial pneumonia. She has been double vaccinated, boosted, and received Paxlovid prior to presentation. She is now currently on day 6 or 7 of symptoms including a fever with a T-max of 103?, nasal congestion, sore throat, and a dry hacking cough. She was profoundly short of breath in the ER and intubation was considered but after starting heated, high-flow oxygen, she did stabilize prior to transfer to the floor. Vital signs upon admission to the ED included temperature 101.5?, pulse 123, respirations 52, blood pressure 117/59, O2 saturation 74% on room air. Pertinent labs included an elevated white count at 13.3, up from 10.9 yesterday. D-dimer 2959, ferritin 1090, alkaline phosphatase 150, CRP 68.6, BNP 418, albumin 3.2, procalcitonin 3.83. CT angiogram was negative for PE but patient did have dense bilateral alveolar type infiltrates more than usually seen with COVID patients, superimposed bacterial infection suspected. She received remdesivir, dexamethasone, and levofloxacin prior to transfer to the floor. Since arriving in the ICU, she has again become increasingly short of breath and is now on 50 L of heated, high-flow oxygen with tachycardia, tachypnea, and increased work of breathing. Medical history significant for Albert's and ADD, treated with Adderall. She is on no other medications. Patient History Medical History Chronic pelvic pain in female Hx of ovarian cyst Irritable bowel syndrome (IBS) Surgical History History of tonsillectomy S/P tonsillectomy Family & Social History Family History Grandfather No problems noted. Grandmother Lung cancer Grandmother No problems noted. Brother No problems noted. Social History: household members significant other,children Prior Living Arrangements House Safety & Behavioral: Feels Safe in Current Yes Environment Tobacco & Substance use: Smoking Status Former smoker Substance Use Type does not use Meds Home Medications and Allergies Home Medications Medication Instructions Recorded Confirmed Type acetaminophen 325 mg tablet 650 mg PO Q6HR PRN #30 tab 03/08/19 03/22/22 Rx ibuprofen 600 mg tablet 600 mg PO Q6HR PRN #30 tab 03/08/19 03/22/22 Rx methocarbamol 500 mg tablet 500 mg PO TID PRN #14 tab 03/20/22 03/22/22 Rx nirmatrelvir 150 mg x 2-ritonavir See Rx Instructions .ROUTE 03/20/22 03/22/22 Rx 100 mg tablet (EUA) (Paxlovid .COMPLEX #30 tab (EUA)) cholecalciferol (vitamin D3) 125 6,000 unit PO DAILY 03/22/22 03/22/22 History mcg (5,000 unit) tablet (Vitamin D3) dextroamphetamine-amphetamine 20 20 mg PO BID 03/22/22 03/22/22 History mg tablet (Adderall) Allergies Allergy/AdvReac Type Severity Reaction Status Date / Time No Known Drug Allergies Allergy Verified 07/16/18 13:26 Review of Systems Review of Systems Narrative: All remaining ROS were reviewed and negative except as addressed. Exam Vital Signs (past 8 hours): - 03/22/22 05:55 03/22/22 05:59 03/22/22 06:00 Temperature 101.5 F H Pulse Rate 123 H 119 H 119 H Respiratory Rate 52 H Blood Pressure 117/59 L 117/59 L Pulse Oximetry 74 L 92 92 03/22/22 06:30 03/22/22 06:48 03/22/22 07:00 Temperature Pulse Rate 118 H 114 H 119 H Respiratory Rate 45 H 35 H 42 H Blood Pressure 117/69 119/68 Pulse Oximetry 100 100 94 03/22/22 07:02 03/22/22 07:30 03/22/22 07:50 Temperature Pulse Rate 114 H 107 H 114 H Respiratory Rate 45 H 24 45 H Blood Pressure 123/67 117/65 123/67 Pulse Oximetry 100 100 100 03/22/22 08:00 03/22/22 08:30 03/22/22 08:47 Temperature 98.2 F Pulse Rate 109 H 109 H 110 H Respiratory Rate 18 28 H 22 Blood Pressure 110/67 115/69 113/54 L Pulse Oximetry 99 98 98 03/22/22 09:26 Temperature Pulse Rate 108 H Respiratory Rate 24 Blood Pressure 113/58 L Pulse Oximetry 97 Oxygen Delivery Method Heated High Flow Oxygen Flow Rate 15 Narrative Exam Narrative: GENERAL: Alert and oriented, appearing stated age and in acute, respiratory distress. HEENT: Head normocephalic/atraumatic. Extraocular movements intact. LUNGS: Unable to speak in full sentences, increased work of breathing with extremely diminished inspiratory effort. Expiratory wheezes heard throughout with crackles in the bases. CV: Normal S1 and S2 with tachycardic rate and regular rhythm, no audible murmurs, rubs or gallops. ABDOMEN: Soft, non-tender, non-distended, no organomegaly. Positive bowel sounds. EXTREMITIES: No clubbing, cyanosis, or edema. NEURO: Cranial nerves II through XII grossly intact, no focal deficits. PSYCH: Alert and oriented x 3. SKIN: No concerning lesions. Objective Labs Result Diagrams: 03/22/22 05:55 03/22/22 05:55 Labs: Laboratory Results - last 24 hr 03/22/22 03/22/22 03/22/22 05:55 05:55 05:55 WBC 13.3 H RBC 4.14 Hgb 12.2 Hct 36.0 MCV 87.0 MCH 29.5 MCHC 33.8 RDW 13.5 Plt Count 275 Neut % (Auto) 95.2 H Lymph % (Auto) 3.3 L [place] % (Auto) 0.9 L Eos % (Auto) 0.4 L Baso % (Auto) 0.2 Neut # (Auto) 14986 H Lymph # (Auto) 400 L [place] # (Auto) 100 Eos # (Auto) 0 Baso # (Auto) 0 D-Dimer 2959 H ABG pH ABG pCO2 ABG pO2 ABG HCO3 ABG Total CO2 ABG O2 Saturation ABG Base Excess FiO2 Sodium Potassium Chloride Carbon Dioxide BUN Creatinine Estimated GFR BUN/Creatinine Ratio Glucose Lactate Calcium Ferritin Total Bilirubin AST ALT Alkaline Phosphatase Lactate Dehydrogenase Total Creatine Kinase CK-MB (CK-2) CK-MB (CK-2) Rel Index Troponin I C-Reactive Protein NT-Pro-B Natriuret Pep Total Protein Albumin Globulin Albumin/Globulin Ratio Procalcitonin 3.83 H SARS-CoV-2 (PCR) 0503/22/22 03/22/22 05:55 05:55 06:10 WBC RBC Hgb Hct MCV MCH MCHC RDW Plt Count Neut % (Auto) Lymph % (Auto) [place] % (Auto) Eos % (Auto) Baso % (Auto) Neut # (Auto) Lymph # (Auto) [place] # (Auto) Eos # (Auto) Baso # (Auto) D-Dimer ABG pH ABG pCO2 ABG pO2 ABG HCO3 ABG Total CO2 ABG O2 Saturation ABG Base Excess FiO2 Sodium 137 Potassium 3.7 Chloride 103 Carbon Dioxide 24 BUN 14 Creatinine 0.83 Estimated GFR > 60 BUN/Creatinine Ratio 16.9 Glucose 101 H Lactate 2.5 H Calcium 8.6 Ferritin 1090 H Total Bilirubin 0.7 AST 48 H ALT 34 Alkaline Phosphatase 150 H Lactate Dehydrogenase 555 Total Creatine Kinase < 20 L CK-MB (CK-2) TNP CK-MB (CK-2) Rel Index TNP Troponin I < 0.012 C-Reactive Protein 68.6 H NT-Pro-B Natriuret Pep 418 H Total Protein 6.7 Albumin 3.2 L Globulin 3.5 Albumin/Globulin Ratio 0.9 L Procalcitonin SARS-CoV-2 (PCR) Positive H 03/22/22 03/22/22 06:13 08:25 WBC RBC Hgb Hct MCV MCH MCHC RDW Plt Count Neut % (Auto) Lymph % (Auto) [place] % (Auto) Eos % (Auto) Baso % (Auto) Neut # (Auto) Lymph # (Auto) [place] # (Auto) Eos # (Auto) Baso # (Auto) D-Dimer ABG pH 7.48 H ABG pCO2 31.3 L ABG pO2 112 H ABG HCO3 23 ABG Total CO2 24 ABG O2 Saturation 99 ABG Base Excess -1.0 FiO2 100 Sodium Potassium Chloride Carbon Dioxide BUN Creatinine Estimated GFR BUN/Creatinine Ratio Glucose Lactate 1.7 Calcium Ferritin Total Bilirubin AST ALT Alkaline Phosphatase Lactate Dehydrogenase Total Creatine Kinase CK-MB (CK-2) CK-MB (CK-2) Rel Index Troponin I C-Reactive Protein NT-Pro-B Natriuret Pep Total Protein Albumin Globulin Albumin/Globulin Ratio Procalcitonin SARS-CoV-2 (PCR) Assessment & Plan Assessment & Plan narrative: 1. Acute hypoxic respiratory failure secondary to COVID/bacterial pneumonia Plan: Patient has become unstable since being transferred to the ICU, respiratory distress worsening despite maximum heated high-flow. Plan will be to intubate, place central line, and transfer to higher level of care. 2. COVID pneumonia with likely superimposed bacterial pneumonia Plan: Please see #1. Will continue supportive therapy and levofloxacin 750 mg p.o. q.day. 3. ADD Plan: Holding Adderall. Code: Full COVID: Positive DVT prophylaxis: Lovenox GI prophylaxis: Protonix Disposition: Transfer to tertiary facility for higher level of care.
[2022-03-22] MEDS: PANTOPRAZOLE 40 MG VIAL IV (11:07)
[2022-03-22] MEDS: ENOXAPARIN 40 MG/0.4 ML SYRINGE SUBCUT (11:07)
[2022-03-22] MEDS: MORPHINE 2 MG/ML INJ IV (11:08)
[2022-03-22] MEDS: DEXTROSE 5%-0.45% NS 1,000 ML 100 ML IV (11:08)
--- NOTE | 2022-03-22 12:10 | PM.CN.EICU ---
History of Present Illness Consult details Date Patient Seen: 03/22/22 Chief complaint: sob/covid+ :: This patient was seen via real time interactive two-way audiovisual telecommunication. [facility] Medical History (Updated 03/22/22 @ 07:53 by Kike Velazquez DO) Chronic pelvic pain in female Hx of ovarian cyst Irritable bowel syndrome (IBS) Surgical History History of tonsillectomy S/P tonsillectomy Family History Grandfather No problems noted. Grandmother Lung cancer Grandmother No problems noted. Brother No problems noted. Social History household members: significant other and children Smoking Status: Former smoker Current Medications Current Medications Medications: Home Medications acetaminophen 325 mg tablet 650 mg PO Q6HR PRN #30 tab 03/08/19 [Rx Confirmed 03/22/22] ibuprofen 600 mg tablet 600 mg PO Q6HR PRN #30 tab 03/08/19 [Rx Confirmed 03/22/22] methocarbamol 500 mg tablet 500 mg PO TID PRN #14 tab 03/20/22 [Rx Confirmed 03/22/22] nirmatrelvir 150 mg x 2-ritonavir 100 mg tablet (EUA) (Paxlovid (EUA)) See Rx Instructions .ROUTE .COMPLEX #30 tab 03/20/22 [Rx Confirmed 03/22/22] cholecalciferol (vitamin D3) 125 mcg (5,000 unit) tablet (Vitamin D3) 6,000 unit PO DAILY 03/22/22 [History Confirmed 03/22/22] dextroamphetamine-amphetamine 20 mg tablet (Adderall) 20 mg PO BID 03/22/22 [History Confirmed 03/22/22] Visit Medications (administered) Generic Name Dose Route Start Last Admin Trade Name Freq PRN Reason Stop Dose Admin Enoxaparin Sodium 40 mg 03/22/22 10:00 03/22/22 11:07 Enoxaparin 40 Mg/0.4 Ml Syringe SUBCUT 40 mg DAILY JOANN Administration Dextrose/Sodium Chloride 1,000 mls @ 100 mls/hr 03/22/22 10:00 03/22/22 11:08 Dextrose 5%-0.45% Ns IV 100 mls/hr CONT JOANN Administration Morphine Sulfate 2 mg 03/22/22 09:52 03/22/22 11:08 Morphine 2 Mg/Ml Inj IV 2 mg Q4H PRN Administration Breakthrough pain only (8-10) Pantoprazole Sodium 40 mg 03/22/22 10:00 03/22/22 11:07 Pantoprazole 40 Mg Vial IV 40 mg DAILY JOANN Administration Exam Vital Signs (past 8 hours): - 03/22/22 05:55 03/22/22 05:59 03/22/22 06:00 Temperature 101.5 F H Pulse Rate 123 H 119 H 119 H Respiratory Rate 52 H Blood Pressure 117/59 L 117/59 L Pulse Oximetry 74 L 92 92 03/22/22 06:30 03/22/22 06:48 03/22/22 07:00 Temperature Pulse Rate 118 H 114 H 119 H Respiratory Rate 45 H 35 H 42 H Blood Pressure 117/69 119/68 Pulse Oximetry 100 100 94 03/22/22 07:02 03/22/22 07:30 03/22/22 07:50 Temperature Pulse Rate 114 H 107 H 114 H Respiratory Rate 45 H 24 45 H Blood Pressure 123/67 117/65 123/67 Pulse Oximetry 100 100 100 03/22/22 08:00 03/22/22 08:30 03/22/22 08:47 Temperature 98.2 F Pulse Rate 109 H 109 H 110 H Respiratory Rate 18 28 H 22 Blood Pressure 110/67 115/69 113/54 L Pulse Oximetry 99 98 98 03/22/22 09:26 Temperature Pulse Rate 108 H Respiratory Rate 24 Blood Pressure 113/58 L Pulse Oximetry 97 Oxygen Delivery Method Heated High Flow Oxygen Flow Rate 15 Objective Labs Result Diagrams: 03/22/22 05:55 03/22/22 05:55 Labs: Laboratory Results - last 24 hr 03/22/22 03/22/22 03/22/22 05:55 05:55 05:55 WBC 13.3 H RBC 4.14 Hgb 12.2 Hct 36.0 MCV 87.0 MCH 29.5 MCHC 33.8 RDW 13.5 Plt Count 275 Neut % (Auto) 95.2 H Lymph % (Auto) 3.3 L [place] % (Auto) 0.9 L Eos % (Auto) 0.4 L Baso % (Auto) 0.2 Neut # (Auto) 33462 H Lymph # (Auto) 400 L [place] # (Auto) 100 Eos # (Auto) 0 Baso # (Auto) 0 D-Dimer 2959 H ABG pH ABG pCO2 ABG pO2 ABG HCO3 ABG Total CO2 ABG O2 Saturation ABG Base Excess FiO2 Sodium Potassium Chloride Carbon Dioxide BUN Creatinine Estimated GFR BUN/Creatinine Ratio Glucose Lactate Calcium Ferritin Total Bilirubin AST ALT Alkaline Phosphatase Lactate Dehydrogenase Total Creatine Kinase CK-MB (CK-2) CK-MB (CK-2) Rel Index Troponin I C-Reactive Protein NT-Pro-B Natriuret Pep Total Protein Albumin Globulin Albumin/Globulin Ratio Procalcitonin 3.83 H SARS-CoV-2 (PCR) 03/22/22 03/22/22 03/22/22 05:55 05:55 06:10 WBC RBC Hgb Hct MCV MCH MCHC RDW Plt Count Neut % (Auto) Lymph % (Auto) [place] % (Auto) Eos % (Auto) Baso % (Auto) Neut # (Auto) Lymph # (Auto) [place] # (Auto) Eos # (Auto) Baso # (Auto) D-Dimer ABG pH ABG pCO2 ABG pO2 ABG HCO3 ABG Total CO2 ABG O2 Saturation ABG Base Excess FiO2 Sodium 137 Potassium 3.7 Chloride 103 Carbon Dioxide 24 BUN 14 Creatinine 0.83 Estimated GFR > 60 BUN/Creatinine Ratio 16.9 Glucose 101 H Lactate 2.5 H Calcium 8.6 Ferritin 1090 H Total Bilirubin 0.7 AST 48 H ALT 34 Alkaline Phosphatase 150 H Lactate Dehydrogenase 555 Total Creatine Kinase < 20 L CK-MB (CK-2) TNP CK-MB (CK-2) Rel Index TNP Troponin I < 0.012 C-Reactive Protein 68.6 H NT-Pro-B Natriuret Pep 418 H Total Protein 6.7 Albumin 3.2 L Globulin 3.5 Albumin/Globulin Ratio 0.9 L Procalcitonin SARS-CoV-2 (PCR) Positive H 03/22/22 03/22/22 06:13 08:25 WBC RBC Hgb Hct MCV MCH MCHC RDW Plt Count Neut % (Auto) Lymph % (Auto) [place] % (Auto) Eos % (Auto) Baso % (Auto) Neut # (Auto) Lymph # (Auto) [place] # (Auto) Eos # (Auto) Baso # (Auto) D-Dimer ABG pH 7.48 H ABG pCO2 31.3 L ABG pO2 112 H ABG HCO3 23 ABG Total CO2 24 ABG O2 Saturation 99 ABG Base Excess -1.0 FiO2 100 Sodium Potassium Chloride Carbon Dioxide BUN Creatinine Estimated GFR BUN/Creatinine Ratio Glucose Lactate 1.7 Calcium Ferritin Total Bilirubin AST ALT Alkaline Phosphatase Lactate Dehydrogenase Total Creatine Kinase CK-MB (CK-2) CK-MB (CK-2) Rel Index Troponin I C-Reactive Protein NT-Pro-B Natriuret Pep Total Protein Albumin Globulin Albumin/Globulin Ratio Procalcitonin SARS-CoV-2 (PCR) Assessment & Plan Assessment & Plan narrative: desi seen and exmained with bedside nurse chart/labs/imaging reviewed 31 year old female with acute resp failure 2/2 to covid plus likley superinfection with necortizing pna current afebirle, HD stable tachycardia tachyneic and sob suggest -intubated for worsening resp failure -vent support keep pH above 7.25, pao2 above 55 -sedate/paralyze/prone/ xfer for possible ecmo -broad spec abx -remdesiver steroids -monitor ints/outs keep glucose 140-180s -gi/dvt ppx -please call eICU if condition changes Time Spent With Patient Critical Care time: I spent a total of [] minutes of critical care time on this patient's care today; this time is exclusive of procedural time.
[2022-03-22] MEDS: propofoL 1,000 MG/100 ML VIAL 2.223 MG IV (12:30)
[2022-03-22] MEDS: fentaNYL 1,000 MCG in DEXTROSE 5% IN WATER 230 ML 12.968 ML IV (12:40)
--- NOTE | 2022-03-22 12:58 | DI.RAD.S_ITS ---
PROCEDURE: XR CHEST 1V INDICATIONS: intubation TECHNIQUE: One view of the chest was acquired. COMPARISON: [facility], CR, XR CHEST 1V, 03/22/2022, 6:22. FINDINGS: Surgical changes and devices: ETT is present, tip of which is 30 mm above the amor. Lungs and pleura: Increased, severe multifocal patchy bilateral right greater than left pneumonia. Mediastinum: Mediastinal contours appear normal. Heart size is normal. Bones and chest wall: No suspicious bony lesions. Overlying soft tissues appear unremarkable. IMPRESSION: 1. Increased, severe bilateral pneumonia. 2. Continued plain film surveillance is recommended to ensure resolution, and to exclude underlying or central malignancy. Dictated by: Avinash Bravo M.D. on 03/22/2022 at 13:17 Approved by: Avinash Bravo M.D. on 03/22/2022 at 13:18
--- NOTE | 2022-03-22 12:59 | PM.DS.1 ---
History of Present Illness History of Present Illness Date Patient Seen: 03/22/22 Time Patient Seen: 12:00 Chief complaint: sob/covid+ Narrative: 31-year-old female former smoker is admitted to the floor with COVID pneumonia suspected superimposed bacterial pneumonia. She has been double vaccinated, boosted, and received Paxlovid prior to presentation. She is now currently on day 6 or 7 of symptoms including a fever with a T-max of 103?, nasal congestion, sore throat, and a dry hacking cough. She was profoundly short of breath in the ER and intubation was considered but after starting heated, high-flow oxygen, she did stabilize prior to transfer to the ICU. Vital signs upon admission to the ED included temperature 101.5?, pulse 123, respirations 52, blood pressure 117/59, O2 saturation 74% on room air. Pertinent labs included an elevated white count at 13.3, up from 10.9 yesterday. D-dimer 2959, ferritin 1090, alkaline phosphatase 150, CRP 68.6, BNP 418, albumin 3.2, procalcitonin 3.83. CT angiogram was negative for PE but patient did have dense bilateral alveolar type infiltrates more than usually seen with COVID patients, superimposed bacterial infection suspected. She received remdesivir, dexamethasone, and levofloxacin prior to transfer to the floor. Since arriving in the ICU, she has again become increasingly short of breath and is now on 50 L of heated, high-flow oxygen with tachycardia, tachypnea, and increased work of breathing. Medical history significant for Albert's and ADD, treated with Adderall. She is on no other medications. Discharge Providers Provider Date of admission: 03/22/22 08:03 Discharge Date: 03/22/22 Primary care physician: Roberto Moran MD Consults: 03/22/22 09:52 Consult to Tele-political theory professor Routine Comment: Consulting Provider: [employer] [employer] Reason for consultation: [employer] Has provider been notified: No Discharge provider: Kenyetta Polk MD Summary Hospital Course Discharge Diagnosis: 1. Acute hypoxic respiratory failure secondary to COVID/bacterial pneumonia 2.? COVID pneumonia with likely superimposed bacterial pneumonia 3.? ADD Hospital Course: Patient had very short hospital course becoming unstable upon arrival in the ICU with worsening tachypnea, tachycardia, and acute respiratory distress. She was intubated and central line placed. She is now receiving propofol 5 mcg/kg/min and fentanyl 0.7 mcg/kg/hr drips and is being closely monitored while awaiting transfer for higher level of care. Vent at 100% FiO2, PEEP of 7, with tidal volume of 400. Currently saturations are at 94% with a respiratory rate of 20. 14:10: Temperature 102.6, HR 130, RR 24, O2 98%. Patient rapidly metabolizing medications, tele-political theory professor consulted, precedex drip begun. NE tylenol placed. 14:42: ABG showed a pH of 7.428, pCO2 35.3, PO2 111, bicarb 23.3, BE -1. 15:37: Dr. Wilber Montez, ICU [employer] [facility] at [facility] has kindly agreed to accept patient in transfer of care. Advised starting vacomycin and cefepime prior to transport. Medications started now. 15:39: Family given final updates regarding [facility] placement. Fiance is Bryce ([phone]) and mother is Klely ([phone]), questions answered. Greater than 3 hours and 52 minutes was spent [id number] from 12:00 to 15:52 with greater than 50% of the time directed towards stabilizing patient during critical care transport. This included evaluating the status of the patient, communicating with the patient and family, and directing the team attending the patient. Status at Discharge Cognitive/behavioral status at discharge: at baseline, oriented (this was state prior to intubation) Functional status at discharge: independent ambulation Overall status at discharge: patient is not back to baseline Exam Vital Signs (past 8 hours): - 03/22/22 05:55 03/22/22 05:59 03/22/22 06:00 Temperature 101.5 F H Pulse Rate 123 H 119 H 119 H Respiratory Rate 52 H Blood Pressure 117/59 L 117/59 L Pulse Oximetry 74 L 92 92 03/22/22 06:30 03/22/22 06:48 03/22/22 07:00 Temperature Pulse Rate 118 H 114 H 119 H Respiratory Rate 45 H 35 H 42 H Blood Pressure 117/69 119/68 Pulse Oximetry 100 100 94 03/22/22 07:02 03/22/22 07:30 03/22/22 07:50 Temperature Pulse Rate 114 H 107 H 114 H Respiratory Rate 45 H 24 45 H Blood Pressure 123/67 117/65 123/67 Pulse Oximetry 100 100 100 03/22/22 08:00 03/22/22 08:30 03/22/22 08:47 Temperature 98.2 F Pulse Rate 109 H 109 H 110 H Respiratory Rate 18 28 H 22 Blood Pressure 110/67 115/69 113/54 L Pulse Oximetry 99 98 98 03/22/22 09:26 Temperature Pulse Rate 108 H Respiratory Rate 24 Blood Pressure 113/58 L Pulse Oximetry 97 Oxygen Delivery Method Heated High Flow Oxygen Flow Rate 15 Narrative Exam Narrative: GENERAL:? sedated, appearing stated age, intubated. HEENT:? Head normocephalic/atraumatic.? Extraocular movements intact. LUNGS:? intubated, expiratory wheezes heard throughout with crackles in the bases. CV:? Normal S1 and S2 with tachycardic rate and regular rhythm, no audible murmurs, rubs or gallops. ABDOMEN:? Soft, non-tender, non-distended, no organomegaly.? Positive bowel sounds. EXTREMITIES:? No clubbing, cyanosis, or edema. NEURO: No focal deficits. PSYCH:? sedated SKIN:? No concerning lesions. Objective Labs Result Diagrams: 03/22/22 05:55 03/22/22 05:55 Labs: Laboratory Results - last 24 hr 03/22/22 03/22/22 03/22/22 05:55 05:55 05:55 WBC 13.3 H RBC 4.14 Hgb 12.2 Hct 36.0 MCV 87.0 MCH 29.5 MCHC 33.8 RDW 13.5 Plt Count 275 Neut % (Auto) 95.2 H Lymph % (Auto) 3.3 L [place] % (Auto) 0.9 L Eos % (Auto) 0.4 L Baso % (Auto) 0.2 Neut # (Auto) 60253 H Lymph # (Auto) 400 L [place] # (Auto) 100 Eos # (Auto) 0 Baso # (Auto) 0 D-Dimer 2959 H ABG pH ABG pCO2 ABG pO2 ABG HCO3 ABG Total CO2 ABG O2 Saturation ABG Base Excess FiO2 Sodium Potassium Chloride Carbon Dioxide BUN Creatinine Estimated GFR BUN/Creatinine Ratio Glucose Lactate Calcium Ferritin Total Bilirubin AST ALT Alkaline Phosphatase Lactate Dehydrogenase Total Creatine Kinase CK-MB (CK-2) CK-MB (CK-2) Rel Index Troponin I C-Reactive Protein NT-Pro-B Natriuret Pep Total Protein Albumin Globulin Albumin/Globulin Ratio Procalcitonin 3.83 H SARS-CoV-2 (PCR) 03/22/22 03/22/22 03/22/22 05:55 05:55 06:10 WBC RBC Hgb Hct MCV MCH MCHC RDW Plt Count Neut % (Auto) Lymph % (Auto) [place] % (Auto) Eos % (Auto) Baso % (Auto) Neut # (Auto) Lymph # (Auto) [place] # (Auto) Eos # (Auto) Baso # (Auto) D-Dimer ABG pH ABG pCO2 ABG pO2 ABG HCO3 ABG Total CO2 ABG O2 Saturation ABG Base Excess FiO2 Sodium 137 Potassium 3.7 Chloride 103 Carbon Dioxide 24 BUN 14 Creatinine 0.83 Estimated GFR > 60 BUN/Creatinine Ratio 16.9 Glucose 101 H Lactate 2.5 H Calcium 8.6 Ferritin 1090 H Total Bilirubin 0.7 AST 48 H ALT 34 Alkaline Phosphatase 150 H Lactate Dehydrogenase 555 Total Creatine Kinase < 20 L CK-MB (CK-2) TNP CK-MB (CK-2) Rel Index TNP Troponin I < 0.012 C-Reactive Protein 68.6 H NT-Pro-B Natriuret Pep 418 H Total Protein 6.7 Albumin 3.2 L Globulin 3.5 Albumin/Globulin Ratio 0.9 L Procalcitonin SARS-CoV-2 (PCR) Positive H 03/22/22 03/22/22 06:13 08:25 WBC RBC Hgb Hct MCV MCH MCHC RDW Plt Count Neut % (Auto) Lymph % (Auto) [place] % (Auto) Eos % (Auto) Baso % (Auto) Neut # (Auto) Lymph # (Auto) [place] # (Auto) Eos # (Auto) Baso # (Auto) D-Dimer ABG pH 7.48 H ABG pCO2 31.3 L ABG pO2 112 H ABG HCO3 23 ABG Total CO2 24 ABG O2 Saturation 99 ABG Base Excess -1.0 FiO2 100 Sodium Potassium Chloride Carbon Dioxide BUN Creatinine Estimated GFR BUN/Creatinine Ratio Glucose Lactate 1.7 Calcium Ferritin Total Bilirubin AST ALT Alkaline Phosphatase Lactate Dehydrogenase Total Creatine Kinase CK-MB (CK-2) CK-MB (CK-2) Rel Index Troponin I C-Reactive Protein NT-Pro-B Natriuret Pep Total Protein Albumin Globulin Albumin/Globulin Ratio Procalcitonin SARS-CoV-2 (PCR) PFSH Medical History Chronic pelvic pain in female Hx of ovarian cyst Irritable bowel syndrome (IBS) Surgical History History of tonsillectomy S/P tonsillectomy Family History Grandfather No problems noted. Grandmother Lung cancer Grandmother No problems noted. Brother No problems noted. Social History household members: significant other and children Smoking Status: Former smoker Discharge Plan Discharge Plan Patient Disposition: [facility] Other facility: [facility] Under care of provider: Dr. Wilber Montez Discharge Health Status Precautions: Droplet and Airborne Diet/Activity/Treatments Diet: Nothing by Mouth Discharge Data Primary Care Provider: Roberto Moran
[2022-03-22] MEDS: ACETAMINOPHEN 650 MG SUPP PR (13:20)
--- NOTE | 2022-03-22 13:43 | DI.RAD.S_ITS ---
PROCEDURE: XR CHEST FOR PICC 1V INDICATIONS: line placement TECHNIQUE: One view of the chest was acquired. COMPARISON: [facility], , XR CHEST 1V, 03/22/2022, 12:57. FINDINGS: Surgical changes and devices: ETT is present, tip of which is in expected location. Right internal jugular vein central venous catheter is present, tip of which is in the mid SVC. Lungs and pleura: Allowing for differences in technique, no definite change in severe multifocal patchy bilateral pulmonary opacities. No pleural effusions or pneumothorax. Mediastinum: Mediastinal contours appear normal. Heart size is normal. Bones and chest wall: No suspicious bony lesions. Overlying soft tissues appear unremarkable. IMPRESSION: No change in bilateral pneumonia. Continued plain film surveillance is recommended to ensure resolution, and to exclude underlying or central malignancy. Dictated by: Avinash Bravo M.D. on 03/22/2022 at 14:16 Approved by: Avinash Bravo M.D. on 03/22/2022 at 14:17
[2022-03-22] MEDS: MIDAZOLAM 2 MG/2 ML VIAL IV (14:08)
[2022-03-22] MEDS: dexmedeTOMIDine in 0.9 % NaCL 400 MCG/100 ML PLAST..BAG IV (14:41)
[2022-03-22 14:42] LABS: pH ABG 7.43 (7.35-7.45)
[2022-03-22 14:43] LABS: HCO3 ABG 23 mmol/L (22-26); Oxygen Saturation ABG 99 % (95-100); PCO2 ABG 35.3 mmHg (35-45); PO2 ABG 111 mmHg (80-100); TCO2 ABG 24 mmol/L (21-31)
[2022-03-22 15:00] LABS: Pregnancy Test Urine Negative (Negative)
--- NOTE | 2022-03-22 15:00 | PM.PROC.1 ---
Procedures Date/Time Date of procedure: 03/22/22 Time of procedure: 12:34 General Procedure description: Asked by the ICU team to intubate this 31 year old woman with resp distress due to Covid pneumonia Central Line Placement Time out performed: Yes Patient placed on monitor/pulse ox: Yes MD prep: mask, gown and gloves Central line prep: Chlorhexidine scrub and sterile drapes applied Ultrasound used for placement: Yes Central line lumen inserted: triple Post procedure x-ray: tip of catheter in good position Additional comments: Central line placement requested to prepare this patient for transfer to another facility. Ultrasound guidance used. Time out 1308. She has hyperdynamic VS despite IV sedation so the seation level was deepened by the RN during the procedure. Another 50 mg of Connor was given to minimize movement as she had been turning her head shortly after intubation. BP generous in the 140's systolic. HR in the 130s. Spo2 was 90 after intubation on fi02 of 70% and increased to mid 90s when fi02 increased. BSEB. TV 400 RR 15 Peep increased from 5 to 7. She had been given Lovenox in the morning in the ED, and she bled generously with the skin bernardino for the dilator insertion. After placement of the 3-lumen catheter using sterile Seldinger technique, gentle pressure did not stop the bleeding. However, a single purse-string loop of suture around the catheter insert site did stop it. No further sutures were placed to secure the line, so as not to cause more bleeding. The line was secured with Tergaderm. Cxray showed the line was a little too deep, so it was pulled back a few inches and resecured. Good clotting at the insertion site was noted. The three lumens flushed well. Repeat Cxray showed the catheter in good position. Time 8902-3633. Intubation Time out performed: Yes Sedative: fentanyl (150 mcg) Laryngoscope: Fiona (Glidescope mac 3) ET tube size: 7.5 Tube secured depth (cm): 22 Tube placement confirmation: visualized tube passing through cords, equal breath sounds bilaterally, no breath sounds over epigastrium and confirmation by capnometry Patient tolerated procedure: well and no complications Intubation complications: none Additional comments: Propfol 150 mg and Connor 50 mg given in addition to the Fentanyl. Full PPE precautions used by all in the room. The patient was awake prior to sedation and had given her consent to the team for the procedure. Dr Sanabria is securing transfer for this patient for escalation of care. Intubation was done easily and rapidly, and placement was verified by CXray as well. Additional Propodofl 50 mg and Fentanyl 100 mcg given shortly after the procedure was done as IV sedation via infusion had not yet been started. Procedure time 1234 - 1249
[2022-03-22] MEDS: NOREPINEPHRINE BITARTRATE/D5W 4 MG/250 ML PLAST..BAG 7.5 MG IV (16:26)
[2022-03-22] MEDS: CEFEPIME 2 GM in SODIUM CHLORIDE 0.9% 100 ML 200 ML IV (17:30)
[2022-03-22] MEDS: VANCOMYCIN 1,250 MG/250 ML PIGGYBACK 250 MG IV (17:32)
[2022-03-22] MEDS: propofoL 1,000 MG/100 ML VIAL 8.892 MG IV ×2 (17:34→19:37)
--- NOTE | 2022-03-22 19:07 | PC.NURSE ---
Addendum entered by Blanquita Rasmussen R.N. 03/22/22 19:42: 1940 Pt left via airflight with restraints in place for prevention of extubation during flight to [place], report called to RN at [email or web address], no further patient contact at this time Original Note: Shift note: Pt arrived via gurney on non-rebreather, A/Ox 4 HHF placed at bedside 85%/50L, pt connected to monitoring equipment, oriented to room and call light system, Dr Polk at bedside, pt becoming very distressed, SOB, tachycardic. Intubation recommended by [facility] and bedside due to SOB, WOB, and respiratory rate of 45 Anesthesia at bedside at 1230, will intubate and place central line 1234 Propofol 150, Rocc 50 Fent 150 administered, RT at bedside 1236 Intubated with 7.5 ETT 22 at teeth 1245 administered Fent 100, Propofol 50 1305 Prop 100 1312 ROCC 50 1317 Right IJ placed and secured see anesthesia report Propofol, Precedex, Levophed, Fentanyl infusing as ordered, restraints and jesus placed Pt to be transferred to [place] when bed becomes available, will continue to treat and monitor as ordered
[2022-03-22] MEDS: dexmedeTOMIDine in 0.9 % NaCL 400 MCG/100 ML PLAST..BAG 14.82 MCG IV (19:38)
[2022-03-24 12:18] LABS: Fractionated Inspired Oxygen 100
== END 2022-03-22 19:40 | disposition short-term general hospital (02) | DRG 137 ==
LOC: ED 07:53 → AC 08:04 → ICU 08:56
PROVIDERS: Emergency Medicine; Admitting Provider Student in an Organized Health Care Education/Training Program; Emergency Provider Emergency Medicine; PCP Family Medicine; Referring Provider Emergency Medicine; Visit Provider Student in an Organized Health Care Education/Training Program
DX: U07.1 COVID-19 (principal); J12.82 Pneumonia due to coronavirus disease 2019; J96.01 Acute respiratory failure with hypoxia; J15.9 Unspecified bacterial pneumonia; Z87.891 Personal history of nicotine dependence
CPT/HCPCS: 36415; 36600; 71045; 71275; 80053; 81025; 82550; 82728; 82805; 82962; 83605; 83615; 83880; 84145; 84484; 85025; 85379; 86140; 87040; 87635; 94002; 94799; 96365; 96366; 96375; 99284; 99285; C9803; C9113; J0692; J1100; J1650; J1956; J2250; J2270; J2704; J3010; Q9967

== ENCOUNTER → 2022-04-14 09:05 | Outpatient (CLI) | payer OTHER, MEDICAID, SELFPAY ==
[2022-03-22 09:07] VITALS: BMI 26.4
[2022-03-22 17:51] VITALS: PULSE 94; RESP 2; RESP 22; O2SAT 99
--- NOTE | 2022-04-14 | DI.RAD.S_ITS ---
PROCEDURE: XR CHEST 2V INDICATIONS: Abnormal sputum TECHNIQUE: 2 views of the chest were acquired. COMPARISON: [facility], CR, XR CHEST FOR PICC 1V, 03/22/2022, 13:43. FINDINGS: Surgical changes and devices: None. Lungs and pleura: Mild patchy bilateral mid and lower lung zone airspace opacities. These are less prominent compared to the prior study. No new focal consolidation seen. No substantial pleural effusion. No pneumothorax. Mediastinum: Mediastinal contours are normal. Heart size is normal. Bones and chest wall: No suspicious bony abnormalities. Soft tissues appear unremarkable. IMPRESSION: Mild patchy bilateral mid and lower lung zone airspace opacities compatible with resolving multifocal pneumonia. Dictated by: Franklyn Harrington M.D. on 04/14/2022 at 14:13 Approved by: Franklyn Harrington M.D. on 04/14/2022 at 14:14
== END ==
PROVIDERS: PCP Family Medicine; Referring Provider Naturopath; Visit Provider Naturopath
DX: R09.3 Abnormal sputum (principal); Z86.16 Personal history of COVID-19
CPT/HCPCS: 71046